=== PATIENT | female | born 1980 | race Caucasian/White ===

== ENCOUNTER 2024-02-06 09:20 | Day surgery (SDC) | payer OTHER, SELFPAY ==
[2024-02-06 09:41] VITALS: BMI 32.3
[2024-02-06 10:00] VITALS: BP 119/73; PULSE 69; RESP 18; TEMP 36.3; O2SAT 97
[2024-02-06 10:37] VITALS: O2SAT 100
--- NOTE | 2024-02-06 10:40 | P.HP_ITS ---
History of Present Illness *Admission Date: 02/06/24 *Reason for visit:: Dysphagia *History of present illness: Mrs. Resendiz is a 43-year-old female who is here for dysphagia, heartburn and reflux. She has some globus sensation. The examination is deemed medically necessary for upper endoscopy. The patient has been seen, interviewed and examined prior to the procedure by both myself and the anesthesia provider. [facility] Disclaimer: The information contained in this section may have been updated after the patient was seen, as this information can be updated by other users. Medical History (Updated 02/06/24 @ 10:41 by Solis Crocker II, MD) History of depression H/O: HTN (hypertension) H/O gastroesophageal reflux (GERD) Appendicitis Surgical History Status post partial amputation of foot History of cholecystectomy History of appendectomy H/O arthroscopic knee surgery Family History Mother Cancer Father Heart attack Other Hypertension Social History (Updated 02/06/24 @ 09:49 by Brigida Gan RN) Smoking Status: Current some day smoker alcohol intake: never substance use type: denies use current occupational status: employed Travel in the last 8 weeks: None caffeine: No Review of Systems Review of Systems Review of systems (narrative): Negative *Cardiovascular Comments: Negative *Gastrointestinal Comments: Negative *Genitourinary Comments: Negative *Musculoskeletal Comments: Negative *Neurologic Comments: Negative Meds Home Medications and Allergies Home Medications ?Medication ?Instructions ?Recorded ?Confirmed ?Type blood sugar diagnostic ([employer] #10 ea 01/03/24 01/03/24 History Verio test strips) cholecalciferol (vitamin D3) 50 50 mcg PO DAILY 01/03/24 02/06/24 History mcg (2,000 unit) capsule dicyclomine 10 mg capsule 10 mg PO BID PRN . 01/03/24 02/06/24 History insulin glargine U-300 conc 300 78 unit SQ DAILY 01/03/24 02/05/24 History unit/mL (3 mL) subcutaneous pen (Toujeo Max U-300 SoloStar) lancets 33 gauge ([employer] Evelio #100 ea 01/03/24 01/03/24 History Plus Lancet) lisinopril 2.5 mg tablet 2.5 mg PO DAILY 01/03/24 02/06/24 History omeprazole 20 mg capsule,delayed 20 mg PO DAILY 01/03/24 02/06/24 History release sertraline 100 mg tablet (Zoloft) 100 mg PO DAILY 01/03/24 02/06/24 History atorvastatin 20 mg tablet 20 mg PO DAILY 02/05/24 02/06/24 History dapagliflozin propanediol 10 mg 10 mg PO DAILY 02/05/24 02/06/24 History tablet (Farxiga) New Prescriptions to Start Prescriptions: Allergies Allergy/AdvReac Type Severity Reaction Status Date / Time metformin Allergy Mild Rash Verified 02/06/24 09:49 sumatriptan [From Imitrex] Allergy Mild Rash Verified 02/06/24 09:49 Exam Data for Last 24 hours Vital signs and Labs for Last 24 Hours: Temp Pulse Resp BP Pulse Ox O2 Del Method O2 Flow Rate 97.3 F L 69 18 119/73 97 Nasal Cannula 5 02/06/24 10:00 02/06/24 10:00 02/06/24 10:00 02/06/24 10:00 02/06/24 10:00 02/06/24 10:37 02/06/24 10:37 I & O for Last 24 hours: Intake & Output 02/03/24 02/04/24 02/05/24 02/06/24 22:59 23:59 23:59 23:59 Weight 194 lb *Routine HEENT Exam Head: Present normocephalic Eye: Present EOMI and PERRL ENT: Present mucous membranes moist *Routine Neck Exam Neck: Present supple *Routine Respiratory Exam Respiratory: Present CTA bilaterally *Routine Cardiovascular Exam Cardiovascular: Present RRR *Routine Abdominal Exam Abdominal: Present soft and normoactive bowel sounds; Absent tenderness *Routine Rectal Exam Rectal:: deferred *Routine Genitalia Exam Genitalia:: deferred *Routine Extremities Exam Extremities: Absent cyanosis, clubbing or edema *Routine Skin Exam Skin: Present warm; Absent rash *Routine Neurological Exam Neurological: Present alert and oriented X3 Assessment and Plan *Assessment and plan (1) Dysphagia: Status: Acute Category: Medical Code(s): R13.10 - Dysphagia, unspecified (2) Heartburn: Status: Acute Category: Medical Code(s): R12 - Heartburn (3) GERD (gastroesophageal reflux disease): Status: Acute Category: Medical Code(s): K21.9 - Gastro-esophageal reflux disease without esophagitis (4) Globus sensation: Status: Acute Category: Medical Code(s): R09.A2 - Foreign body sensation, throat Plan A/P: 1. Dysphagia with heartburn, reflux and globus sensation is the preprocedural diagnosis. The patient will be anesthetized/sedated using MAC sedation. The patient has been seen and examined. Cardiac and lung assessment prior to the examination is stable. Proceed with planned upper endoscopy
--- NOTE | 2024-02-06 10:49 | P.PCN_ITS ---
[facility] Procedure Note Date: 02/06/24 Time: 10:49 Procedure Note:: Upper Endoscopy Procedure Report: Esophagogastroduodenoscopy with cold biopsies and TTS balloon dilation Endoscopost: Solis Crocker II, MD Referring Physician: Colt Caballero MD Date of Procedure: February 06, 2024 Equipment: Olympus GIF 190 standard upper endoscope Sedation: MAC sedation Indications: Mrs. Resendiz is a 43-year-old female who is here for symptoms of dysphagia and globus sensation. She does have heartburn and reflux that is not controlled with omeprazole. She does get moderate belching. She reports some gassiness but no bloating. She reports some painful swallowing but reports no epigastric pain or dyspepsia. She has no early satiety. She has occasional nausea. This is her first upper endoscopy. She does state the dysphagia occurs more with solids and liquids. Procedure: Prior to the procedure, a history and physical exam was performed, and patient's medications and allergies were reviewed. The risks, benefits and alternatives of the sedation and procedure were discussed with the patient. All questions were answered and informed consent was obtained. The patient was brought to the procedure room. Patient identification and proposed procedure were verified by the physician and the nurse. The patient was placed in a left lateral decubitus position and the scope was passed under direct vision. Throughout the procedure, the patient's blood pressure, pulse, and oxygen saturations were monitored continuously. The upper GI endoscopy was accomplished without difficulty. The patient tolerated the procedure well. Findings: The scope was passed directly into the upper esophagus and advanced to the third portion of the duodenum. The post bulbar duodenum and duodenal bulb were normal with normal mucosa and conniventes. The scope was withdrawn through a normal duodenal bulb and pylorus into the stomach. There was bile reflux with linear reactive gastropathy of the antrum. The body and fundus were normal except for a couple of fundic gland polyps. Biopsies were taken from the antrum. One of the polyps was removed via cold biopsy. Upon retroflexion there was a very small sliding 1 to 2 cm hiatal hernia. The scope was then withdrawn into the esophagus. There was no evidence of reflux esophagitis or Mays's. There was no Schatzki's ring, corrugation, webs or strictures. There was no inlet patch proximally. There was evidence of strong tertiary contractions and evidence of moderate esophageal dysmotility. The remainder of the esophageal mucosa was normal. The entire esophagus was dilated to 60 German/20 mm with a TTS hydrostatic balloon. There was some resistance at the cricopharyngeus. Impression: 1. Cricopharyngeal spasm status post dilation to 20 mm 2. Nonerosive GERD with moderate esophageal dysmotility and very small sliding 1 to 2 cm hiatal hernia 3. Bile reflux with linear reactive gastropathy of antrum 4. Diminutive fundic gland gastric polyp Plan: I will follow-up the biopsies. The patient does have evidence of esophageal dysmotility which is causing some of her swallowing difficulty and pain (esophageal spasm). We will discuss treatment options.
[2024-02-06 10:54] VITALS: BP 135/73; PULSE 84; RESP 18; TEMP 36.3; O2SAT 90
[2024-02-06 11:04] VITALS: BP 109/72; PULSE 71; RESP 16; O2SAT 95
[2024-02-06 11:14] VITALS: BP 110/70; PULSE 74; RESP 16; O2SAT 98
[2024-02-06 11:24] VITALS: BP 114/68; PULSE 70; RESP 16; TEMP 36.6; O2SAT 99
[2024-02-07 08:36] LABS: POC Glucose,Bedside 175 (70-110)
== END 2024-02-06 11:24 | disposition home or self-care (01) ==
PROVIDERS: PCP Family Medicine; Visit Provider Internal Medicine Gastroenterology
PROC: 0DJ08ZZ Inspection of Upper Intestinal Tract, Via Natural or Artificial Opening Endoscopic (ICD-10-PCS; CPT 43235; principal; 2024-02-06 11:30)
DX: R13.10 Dysphagia, unspecified (principal); R12 Heartburn; K21.9 Gastro-esophageal reflux disease without esophagitis; R09.A2 Foreign body sensation, throat; J39.2 Other diseases of pharynx; K22.4 Dyskinesia of esophagus; K44.9 Diaphragmatic hernia without obstruction or gangrene; K31.9 Disease of stomach and duodenum, unspecified; K31.7 Polyp of stomach and duodenum; Z72.0 Tobacco use
CPT/HCPCS: 43239; 43249; 82962; C1726

== ENCOUNTER 2024-10-01 09:28 | Outpatient (CLI) | payer OTHER, SELFPAY ==
[2024-10-01 21:30] LABS: Hematocrit 45.5 % (37.0-47.0); Hemoglobin 14.4 g/dL (12.2-16.2); Immature Granulocytes % 0.3 %; Mean Corpuscular HGB Conc 31.6 g/dL (31.8-35.4); Mean Corpuscular Hemoglobin 27.0 pg (27.0-31.2); Mean Corpuscular Volume 85.2 fl (81-99); Nucleated Red Blood Cells % 0 %; Platelet Count 262 K/mm3 (142-424); Red Blood Count 5.34 M/mm3 (4.20-5.40); Red Cell Distribution Width-SD 46.2 fL; White Blood Count 7.8 K/mm3 (4.8-10.8)
[2024-10-01 21:56] LABS: Alanine Aminotransferase 34 U/L (12-78); Albumin Level 4.6 g/dl (3.5-5.0); Albumin/Globulin Ratio 1.6 (1.1-1.8); Alkaline Phosphatase 120 U/L (38-126); Anion Gap 17.3 mEq/L (5-15); Aspartate Amino Transferase 29 U/L (14-36); Bilirubin,Total 0.5 mg/dl (0.2-1.3); Blood Urea Nitrogen 12 mg/dl (7-17); Calcium 9.7 mg/dl (8.4-10.2); Carbon Dioxide 24 mmol/L (22.0-30.0); Chloride 98 mmol/L (98-107); Cholesterol 250 mg/dl (140-200); Creatinine,Serum 0.70 mg/dl (0.52-1.04); Estimated Glomerular Filt Rate 92 ml/min (>60); GFR (African American) 111 ML/MIN (>60); Globulin 2.8 g/dL (1.3-3.2); Glucose 273 mg/dl (74-100); HDL Cholesterol 30 mg/dl (40-60); Potassium 4.3 mmoL/L (3.5-5.1); Sodium 135 mmol/L (136-145); Total Protein,Serum 7.4 g/dl (6.3-8.2); Triglycerides 289 mg/dl (30-150)
[2024-10-01 22:27] LABS: Thyroid Stimulating Hormone 0.53 uIU/mL (0.465-4.68)
[2024-10-01 23:17] LABS: Hepatitis C Ab Qual. W/ RFX NEGATIVE (Negative)
[2024-10-03 05:09] LABS: Hepatitis B Surface Antigen Negative (Negative)
--- OUTSIDE RECORDS SUMMARY | 2024-10-06 09:32 | XMS_ITS | Encounter Summary ---
Author Organization Healthcare Address [address] [id number] Care Team Providers Care Pricing Actuary Name Role Phone Anderson Mckinnon MD Primary Care Provider [phone] Encounter Details Date Type Department Care Team (Latest Contact Info) Description 10/05/2024 Travel Social History Tobacco Use Types Packs/Day Years Used Date Smoking Tobacco: Never Assessed Comments Unknown Sex and Gender Information Value Date Recorded Sex Assigned at Not on file Legal Sex Female 1:54 PM EDT Gender Identity Not on file Sexual Orientation Not on file documented as of this encounter Plan of Treatment Upcoming Encounters Date Type Department Care Team (Late st Contact Info) Description 10/06/2024 10:40 AM EDT Consult [facility] General Surgery [address] [place] [address] Dunia Mc, [employer] [address] [place] [address] documented as of this encounter Visit Diagnoses Not on filedocumented in this encounter Additional Health Concerns Assessment Noted Time A Body Mass Index follow-up plan has been documented for the patient 09/28/2022 4:49 PM EDT documented as of this encounter Care Teams Pricing Actuary Relationship Specialty Start Date End Date Anderson Mckinnon MD [facility] [place] [address] PCP - General 10/05/24 documented as of this encounter
--- OUTSIDE RECORDS SUMMARY | 2024-10-06 09:32 | XMS_ITS | Data Portability ---
Author Organization [facility] Address [address] [place] [address] Assessment Encounter Date Assessment Date Assessment LastModified by Organization Details LastModified Time 07/28/2024 07/28/2024 Call office with questions or concerns. RTO for new or worsening symptoms. [email or web address] Not available 07/28/2024 18:19:23 Plan of Treatment Reminders Order Date Submit Date Provider Last Modified By Organization Details Last Modified Time Details Appointments None recorded . Lab urinalys is, dipstick 2024 025 [email or web address] [facility], [address] [place], [address], 5 16:03:44 TSH + free T4, serum 2024 025 GREGORY [facility], [address], Miguel F, [place], [address], 5 05:43:21 HbA1c (hemoglo bin A1c), blood 2024 025 GREGORY [facility], [address], Miguel F, [place], [address], 5 05:43:24 lipid panel, serum 2024 025 GREGORY [facility], [address], Miguel F, [place], [address], 5 05:43:23 CMP, serum or plasma 2024 025 SHANNON [facility], [address], Miguel F, [place], [address], 5 05:43:22 CBC w/ auto diff 2024 025 SHANNON [facility], [address], Miguel F, [place], [address], 5 05:43:22 Referral None recorded . Procedures None recorded . Surgeries None recorded . Imaging MRI, lumbar spine, w/o contrast - Authoriz ation # [id number] 7 good for 07/30/24 til 09/28/242024 025 [facility] (Centralized Scheduling), [address] [facility] [place], [address], 5 13:46:29 XR, shoulder , 2 or more view 2024 025 [facility], [address] [place] [address] [address], [place], [address], 5 08:54:46 XR, lumbosac ral spine, 2 or 3 view 2024 025 [facility] (Central Scheduling), [address] [facility] [address], [place], [address], 5 13:03:32 Medication Orders acetamin ophen 300 mg-codei ne 30 mg tablet 2024 025 [facility], [address] [facility], [place], [address], 5 10:15:28 ketorola c 60 mg/2 mL intramus cular solution 2024 025 [email or web address] [facility], [address] [facility] [address], [place], [address], 5 10:09:22 ketorola c 60 mg/2 mL intramus cular solution 2024 025 [email or web address] Not available 5 10:09:22 cycloben zaprine 10 mg tablet 2024 025 [facility], [address] [place] [address], [address], 5 10:43:47 acetamin ophen 300 mg-codei ne 30 mg tablet 2024 025 [email or web address] [facility] - [address], [address], 5 10:08:29 ketorola c 60 mg/2 mL intramus cular solution 2024 025 [email or web address] Not available 5 10:09:22 acetamin ophen 300 mg-codei ne 30 mg tablet 2024 025 [email or web address] [place] [address] [place] [address], [address], 5 10:08:29 tizanidi ne 4 mg tablet 2024 025 [facility], [address] [place] [address], [address], 5 10:15:21 cholecal ciferol (vitamin D3) 50 mcg (2,000 unit) capsule 2024 025 [facility] - [address], [address], 5 14:43:51 sertrali ne 100 mg tablet 2024 025 [facility] - [address], [address], 5 14:43:52 Toujeo Max U-300 SoloStar 300 unit/mL (3 mL) subcutan eous insulin pen 2024 025 [facility], [address] [place] [address], [place], [address], 5 14:43:51 Solu-Med rol (PF) 125 mg/2 mL solution for injectio n 2024 025 [email or web address] Not available 10:23:41 predniso ne 20 mg tablet 2024 025 [facility], [address] [place] [address], [place], [address], 5 17:20:28 Patient TargetsNo targets recorded. Patient Instructions Encounter Date Encounter Id Patient Instructions Last Modified By Organization Details Last Modified Time 07/28/2024 [id number] Stress Incontinence: Care Instructions [email or web address] Not available 07/28/2024 16:03:44 Reason for Referral None Reported. Results Created Date Observation Date Name Description Value Unit Range Abnormal Flag Note LastModifiedBy Organization Detail LastModifiedTime 06/14/1906/14/2024 TSH+F REE T4 TSH 1.220 uIU/m L 0.450- 4.500 normal Not Available [facility] ([facility] [place] [facility] [address] [place], [address], 06/14/2024 05:43:21 06/14/19 25 06/14/2024 TSH+F REE T4 T4,free(dire ct) 1.06 NG/dL 0.82-1 .77 normal Not Available [facility] ([facility] [place] [facility] [address] [place], [address], 06/14/2024 05:43:21 06/14/19 25 06/14/2024 CBC WITH DIFFE RENTI AL/PL ATELE T WBC 7.9 x10e3 /uL 3.4-10 .8 normal Not Available [facility] ([facility]) [address] [place], [address], 06/14/2024 05:43:22 06/14/19 25 06/14/2024 CBC WITH DIFFE RENTI AL/PL ATELE T RBC 4.95 x10e6 /uL 3.77-5 .28 normal Not Available [facility] ([facility] [place] [facility] [address] [place], [address], 06/14/2024 05:43:22 06/14/19 25 06/14/2024 CBC WITH DIFFE RENTI AL/PL ATELE T hemoglobin 13.5 g/dL 11.1-1 5.9 normal Not Available [facility] ([facility] [address] [place], [address], 06/14/2024 05:43:22 06/14/19 25 06/14/2024 CBC WITH DIFFE RENTI AL/PL ATELE T hematocrit 41.9 % 34.0-4 6.6 normal Not Available [facility] ([facility]) [address] [place], [address], 06/14/2024 05:43:22 06/14/19 25 06/14/2024 CBC WITH DIFFE RENTI AL/PL ATELE T MCV 85 fL 79-97 normal Not Available [facility] ([facility] [place] [facility]) [address] [place], [address], 06/14/2024 05:43:22 06/14/19 25 06/14/2024 CBC WITH DIFFE RENTI AL/PL ATELE T MCH 27.3 pg 26.6-3 3.0 normal Not Available [facility] ([facility] [place] [facility]) [address] [place], [address], 06/14/2024 05:43:22 06/14/19 25 06/14/2024 CBC WITH DIFFE RENTI AL/PL ATELE T MCHC 32.2 g/dL 31.5-3 5.7 normal Not Available [facility] ([facility] [place] [facility] [address] [place], [address], 06/14/2024 05:43:22 06/14/19 25 06/14/2024 CBC WITH DIFFE RENTI AL/PL ATELE T RDW 15.7 % 11.7-1 5.4 above high normal Not Available [facility] ([facility] [place] [facility] [address] [place], [address], 06/14/2024 05:43:22 06/14/19 25 06/14/2024 CBC WITH DIFFE RENTI AL/PL ATELE T platelets 204 x10e3 /uL 150-45 0 normal Not Available [facility] ([facility] [place] [facility] [address] [place], [address], 06/14/2024 05:43:22 06/14/19 25 06/14/2024 CBC WITH DIFFE RENTI AL/PL ATELE T neutrophils 69 % not estab. normal Not Available [facility] ([facility] [place] [facility] [address] [place], [address], 06/14/2024 05:43:22 06/14/19 25 06/14/2024 CBC WITH DIFFE RENTI AL/PL ATELE T lymphs 25 % not estab. normal Not Available [facility] ([facility] [place] [place] [facility] [address] [place], [address], 06/14/2024 05:43:22 06/14/19 25 06/14/2024 CBC WITH DIFFE RENTI AL/PL ATELE T monocytes 5 % not estab. normal Not Available [facility] ([facility] [address] [place], [address], 06/14/2024 05:43:22 06/14/19 25 06/14/2024 CBC WITH DIFFE RENTI AL/PL ATELE T eos 1 % not estab. normal Not Available [facility] ([facility] [place] [facility] [address] [place], [address], 06/14/2024 05:43:22 06/14/19 25 06/14/2024 CBC WITH DIFFE RENTI AL/PL ATELE T basos 0 % not estab. normal Not Available [facility] ([facility] [place] [facility]) [address] [facility], [place], [address], 06/14/2024 05:43:22 06/14/19 25 06/14/2024 CBC WITH DIFFE RENTI AL/PL ATELE T immature cells MUSEUM CURATOR Not Available [facility] ([facility] [place] [facility] [address] [place], [address], 06/14/2024 05:43:22 06/14/19 25 06/14/2024 CBC WITH DIFFE RENTI AL/PL ATELE T neutrophils (absolute) 5.4 x10e3 /uL 1.4-7. 0 normal Not Available [facility] ([facility] [place] [place] [facility] [address] [place], [address], 06/14/2024 05:43:22 06/14/19 25 06/14/2024 CBC WITH DIFFE RENTI AL/PL ATELE T lymphs (absolute) 2.0 x10e3 /uL 0.7-3. 1 normal Not Available [facility] ([facility] [place] [facility] [address] [place], [address], 06/14/2024 05:43:22 06/14/19 25 06/14/2024 CBC WITH DIFFE RENTI AL/PL ATELE T monocytes(ab solute) 0.4 x10e3 /uL 0.1-0. 9 normal Not Available [facility] ([facility] [place] [facility] [address] [place], [address], 06/14/2024 05:43:22 06/14/19 25 06/14/2024 CBC WITH DIFFE RENTI AL/PL ATELE T eos (absolute) 0.1 x10e3 /uL 0.0-0. 4 normal Not Available [facility] ([facility] [place] [facility]) [address] [facility], [place], [address], 06/14/2024 05:43:22 06/14/19 25 06/14/2024 CBC WITH DIFFE RENTI AL/PL ATELE T baso (absolute) 0.0 x10e3 /uL 0.0-0. 2 normal Not Available [facility] ([facility] [place] [facility] [address] [facility], [place], [address], 06/14/2024 05:43:22 06/14/19 25 06/14/2024 CBC WITH DIFFE RENTI AL/PL ATELE T immature granulocytes 0 % not estab. Not Available [facility] ([facility] [place] [facility] [address] [place], [address], 06/14/2024 05:43:22 06/14/19 25 06/14/2024 CBC WITH DIFFE RENTI AL/PL ATELE T immature grans (abs) 0.0 x10e3 /uL 0.0-0. 1 Not Available [facility] ([facility] [place] [facility] [address] [place], [address], 06/14/2024 05:43:22 06/14/19 25 06/14/2024 CBC WITH DIFFE RENTI AL/PL ATELE T NRBC MUSEUM CURATOR Not Available [facility] ([facility] [place] [facility] [address] [place], [address], 06/14/2024 05:43:22 06/14/19 25 06/14/2024 CBC WITH DIFFE RENTI AL/PL ATELE T hematology comments: MUSEUM CURATOR Not Available [facility] ([facility] [place] [facility] [address] [place], [address], 06/14/2024 05:43:22 06/14/19 25 06/14/2024 COMP. METAB OLIC PANEL (14) glucose 180 mg/dL 70-99 above high normal Not Available [facility] ([facility] [place] [facility] [address] [place], [address], 06/14/2024 05:43:22 06/14/19 25 06/14/2024 COMP. METAB OLIC PANEL (14) BUN 17 mg/dL 6-24 normal Not Available [facility] ([facility] [place] [facility] [address] [place], [address], 06/14/2024 05:43:22 06/14/19 25 06/14/2024 COMP. METAB OLIC PANEL (14) creatinine 0.73 mg/dL 0.57-1 .00 normal Not Available [facility] ([facility] [place] [facility] [address] [place], [address], 06/14/2024 05:43:22 06/14/19 25 06/14/2024 COMP. METAB OLIC PANEL (14) eGFR 106 mL/mi n/1.7 3 >59 normal Not Available [facility] ([facility] [place] [place] [facility] [address] [facility] [place], [address], 06/14/2024 05:43:22 06/14/19 25 06/14/2024 COMP. METAB OLIC PANEL (14) BUN/creatini ne ratio 23 9-23 normal Not Available [facility] ([facility] [place] [place] [facility] [address] [facility] [place], [address], 06/14/2024 05:43:22 06/14/19 25 06/14/2024 COMP. METAB OLIC PANEL (14) sodium 139 mmol/ L 134-14 4 normal Not Available [facility] ([facility] [place] [facility] [address] [facility] [place], [address], 06/14/2024 05:43:22 06/14/19 25 06/14/2024 COMP. METAB OLIC PANEL (14) potassium 3.9 mmol/ L 3.5-5. 2 normal Not Available [facility] ([facility] [place] [facility] [address] [facility] [place], [address], 06/14/2024 05:43:22 06/14/19 25 06/14/2024 COMP. METAB OLIC PANEL (14) chloride 100 mmol/ L 96-106 normal Not Available [facility] ([facility] [place] [place] [facility] [address] [place], [address], 06/14/2024 05:43:22 06/14/19 25 06/14/2024 COMP. METAB OLIC PANEL (14) carbon dioxide, total 19 mmol/ L 20-29 below low normal Not Available [facility] ([facility] [place] [place] [facility] [address], [place], [address], 06/14/2024 05:43:22 06/14/19 25 06/14/2024 COMP. METAB OLIC PANEL (14) calcium 9.3 mg/dL 8.7-10 .2 normal Not Available [facility] ([facility] [place] [place] [facility] [address] [place], [address], 06/14/2024 05:43:22 06/14/19 25 06/14/2024 COMP. METAB OLIC PANEL (14) protein, total 7.3 g/dL 6.0-8. 5 normal Not Available [facility] ([facility] [place] [place] [facility] [address] [place], [address], 06/14/2024 05:43:22 06/14/19 25 06/14/2024 COMP. METAB OLIC PANEL (14) albumin 4.2 g/dL 3.9-4. 9 normal Not Available [facility] ([facility] [place] [facility] [address] [place], [address], 06/14/2024 05:43:22 06/14/19 25 06/14/2024 COMP. METAB OLIC PANEL (14) globulin, total 3.1 g/dL 1.5-4. 5 Not Available [facility] ([facility] [place] [facility] [address], [place], [address], 06/14/2024 05:43:22 06/14/19 25 06/14/2024 COMP. METAB OLIC PANEL (14) bilirubin, total 0.2 mg/dL 0.0-1. 2 normal Not Available [facility] ([facility] [place] [facility] [address] [place], [address], 06/14/2024 05:43:22 06/14/19 25 06/14/2024 COMP. METAB OLIC PANEL (14) alkaline phosphatase 119 IU/L 44-121 normal Not Available [facility] ([facility] [place] [place] [facility] [address] [place], [address], 06/14/2024 05:43:22 06/14/19 25 06/14/2024 COMP. METAB OLIC PANEL (14) AST (SGOT) 22 IU/L 0-40 normal Not Available [facility] ([facility] [place] [facility] [address] [place], [address], 06/14/2024 05:43:22 06/14/19 25 06/14/2024 COMP. METAB OLIC PANEL (14) ALT (SGPT) 30 IU/L 0-32 normal Not Available [facility] ([facility] [place] [facility] [address] [place], [address], 06/14/2024 05:43:22 06/14/19 25 06/14/2024 LIPID PANEL cholesterol, total 239 mg/dL 100-19 9 above high normal Not Available [facility] ([facility] [place] [facility] [address] [place], [address], 06/14/2024 05:43:23 06/14/19 25 06/14/2024 LIPID PANEL triglyceride s 199 mg/dL 0-149 above high normal Not Available [facility] ([facility] [place] [facility] [address] [place], [address], 06/14/2024 05:43:23 06/14/19 25 06/14/2024 LIPID PANEL HDL cholesterol 38 mg/dL >39 below low normal Not Available [facility] ([facility] [place] [facility] [address] [place], [address], 06/14/2024 05:43:23 06/14/19 25 06/14/2024 LIPID PANEL VLDL cholesterol cristin 37 mg/dL 5-40 Not Available [facility] ([facility] [place] [place] [facility] [address] [facility], [place], [address], 06/14/2024 05:43:23 06/14/19 25 06/14/2024 LIPID PANEL LDL chol calc ([facility]) 164 mg/dL 0-99 above high normal Not Available [facility] ([facility] [place] [place] [facility] [address] [facility], [place], [address], 06/14/2024 05:43:23 06/14/19 25 06/14/2024 LIPID PANEL LDL calc comment: MUSEUM CURATOR Not Available [facility] ([facility] [place] [place] [facility] [address] [facility], [place], [address], 06/14/2024 05:43:23 06/14/19 25 06/14/2024 HEMOG LOBIN A1C hemoglobin A1C 11.0 % 4.8-5. 6 above high normal Predi abete s: 5.7 - 6.4 Diabe stiven: >6.4 Glyce abigail contr ol for adult s with diabe stiven: <7.0 Not Available [facility] ([facility] [place] [facility] [address] [facility], [place], [address], 06/14/2024 05:43:24 07/29/19 25 07/28/2024 urina lysis , dipst ick Leukocytes Negati ve Not Available [facility] [address] [place], [address], 07/28/2024 14:11:57 07/29/19 25 07/28/2024 urina lysis , dipst ick Nitrite negati ve Not Available [facility] [address] [place], [address], 07/28/2024 14:11:57 07/29/19 25 07/28/2024 urina lysis , dipst ick Urobilinogen .2 Not Available [address] [place], [address], 07/28/2024 14:11:57 07/29/19 25 07/28/2024 urina lysis , dipst ick Protein Negati ve Not Available [address] [place], [address], 07/28/2024 14:11:57 07/29/19 25 07/28/2024 urina lysis , dipst ick pH 5.5 Not Available [address] [place], [address], 07/28/2024 14:11:57 07/29/19 25 07/28/2024 urina lysis , dipst ick Blood Negati ve Not Available [address] [place], [address], 07/28/2024 14:11:57 07/29/19 25 07/28/2024 urina lysis , dipst ick Specific Electra 1.015 Not Available [address] [place], [address], 07/28/2024 14:11:57 07/29/19 25 07/28/2024 urina lysis , dipst ick Ketone Negati ve Not Available [address] [place], [address], 07/28/2024 14:11:57 07/29/19 25 07/28/2024 urina lysis , dipst ick Bilirubin Negati ve Not Available [address] [place], [address], 07/28/2024 14:11:57 07/29/19 25 07/28/2024 urina lysis , dipst ick Glucose 500 Not Available [facility] [address] [place] [address] [place], [address], 07/28/2024 14:11:57 07/29/19 25 07/28/2024 urina lysis , dipst ick Appearance Clear Not Available [address] [place], [address], 07/28/2024 14:11:57 07/29/19 25 07/28/2024 urina lysis , dipst ick Color Yellow Not Available [address] [place], [address], 07/28/2024 14:11:57 05/26/19 25 05/26/2024 XR, lumbo sacra l spine , 2 or 3 view No observ ation record ed. [email or web address] [facility] (Central Scheduling) [facility] [address], [place], [address], 05/27/2024 07:55:50 07/31/19 25 07/30/2024 XR, shoul edmundo, 2 or more view No observ ation record ed. [email or web address] [address] [place], [address], 07/30/2024 15:34:08 08/06/19 25 08/05/2024 MRI, lumba r spine , w/o contr ast No observ ation record ed. [email or web address] [place] [address], [place], [address], 08/08/2024 15:34:40 Result Notes None recorded. Problems Name Problem SNOMED Code Status Onset Date Resolution Date Notes Provider Name and Address Organization Details Recorded Time Vitamin D deficien cy 68623987 Active 2018 Gerri calle, [place] - [facility] 2 13:07:00 Mixed hyperlip idemia 589207615 Active 2019 Not Available [facility] 1 01:01:19 Migraine 77920468 Active 2019 Not Available [facility] 1 01:01:20 Amenorrh ea 05619531 Completed 201911/24/2020 Sharri Davis, [employer] [address], [place], [address] , [place] - [facility] 3 17:58:15 Family history of cancer of colon 880098136 Active 2019 Not Available [facility] 1 01:01:19 Major depressi ve disorder 798850461 Active 2020 Gerri calle, [place] - [facility] 2 13:06:53 Body mass index 30+ - obesity 868252163 Active 2020 Sharri Davis, [employer] [address], [place], [address] , [place] - [facility] 1 12:48:15 [facility] hyperten lawrence 53526752 Active 2021 Gerri calle, [place] - [facility] 2 13:06:49 Irritabl e bowel syndrome with diarrhea 070073650 Active 2021 Dr. Danii Morocho null, [place] - [facility] 2 13:07:20 Weakness of right hand 75992941356 716590 Completed 202207/08/2024 Lashell Limon RN [address], [place], [address] , [place] [facility] 5 14:07:37 Costal chondrit is 59210108 Completed 202207/08/2024 Lashell Limon RN [address], [place], [address] , [place] [facility] 5 14:07:33 Cough 55457739 Completed 202207/08/2024 Lashell Limon, ELSA [address], [place], [address] , [place] [facility] 5 14:07:23 Uncontro lled type 2 diabetes mellitus 360735237 Active 2016 Gerri [place]le, [place] - [facility] 2 13:06:57 Secondar y oligomen orrhea 08689698 Completed 201611/28/2021 Sharri aDvis, [employer] [address], [place], [address] , [place] [facility] 2 13:30:07 Carpal tunnel syndrome 98413053 Active 2022 Gerri Morocho null, [place] - [facility] 3 11:39:27 Amenorrh ea 06568023 Active 2022 Sharri Davis APRN [address], [place], [address] , [place] [facility] 3 17:58:15 Acute sinusiti s 66081487 Completed 202307/08/2024 Lashell Limon RN [address], [place], [address] , [place] [facility] 5 14:07:10 Chronic low back pain 653378571 Active 2024 Cristiana Renteria, MADHAV [address], [place], [address] , [place] [facility] 5 14:07:12 Chronic pain of left upper limb 92933246042 595552 Active 2024 Cristiana Renteria, MADHAV [address], [place], [address] , [place] [facility] 5 14:11:10 Genuine stress incontin ence 07941702 Active 2024 Cristiana Renteria APRN [address], [place], [address] , [place] [facility] 5 18:20:39 Stenosis of lumbar vertebra l foramen 464197072 Active 2024 Cristiana Renteria APRN [address], [place], [address] , [place] - [facility] 14:07:32 Problem Notes None recorded. Procedures Surgical History Date Name Laterality Status Provider Name and Address Organization Details Recorded Time 10/02/19 24 Suture/Staple removal completed Colt Caballero MD [address], [place], [address], [place] - [facility] 10/02/2023 15:11:45 10/02/19 24 Medication Reconcilliation completed Gerri Rondon [place] - [facility] 10/02/2023 08:44:44 05/03/19 24 Carpal tunnel surgery completed Cony Sandoval [place] - [facility] 06/20/2023 16:31:15 04/04/19 24 Medication Reconcilliation completed Cony Sandoval [place] - [facility] 04/04/2023 09:41:16 04/04/19 24 A1C level 8.0 to 9.0 completed Alison Reeves APRN [address], [place], [address], [place] - [facility] 04/04/2023 09:59:08 03/16/20 23 Date of Last Pap Smear completed Sharri Davis APRN [address], [place], [address], [place] - [facility] 03/21/2023 08:36:41 02/16/20 23 Date of Last Mammogram completed Sharri Davis APRN [address], [place], [address], [place] - [facility] 04/12/2023 17:23:25 10/11/19 23 A1C level 9.1 and above completed Alison Reeves APRN [address], [place], [address], [place] - [facility] 10/10/2022 09:59:11 07/08/19 23 A1C level 9.1 and above completed Alison Reeves APRN [address], [place], [address], [place] - [facility] 07/09/2022 00:54:03 10/16/19 21 Knee arthroscopy/surgery completed Gerri Morocho [place] - [facility] 11/28/2021 13:09:03 11/24/19 20 Diastolic B/P less than 80 mm Hg completed Gerri Morocho [place] - [facility] 11/24/2019 13:03:30 04/29/19 20 Medication Reconcilliation completed Tere Decker [place] - [facility] 04/29/2019 12:53:46 12/17/19 19 Date of Last Colonoscopy completed Sharri Davis, [employer] [address], [place], [address], [place] [facility] 04/12/2023 17:24:13 06/27/19 18 Colposcopy completed Fabyliam Worthy, [employer] [address], [place], [address], [place] [facility] 06/26/2017 15:22:42 06/27/19 18 Colposcopy completed Fabyliam Worthy, [employer] [address], [place], [address], [place] [facility] 06/26/2017 15:24:32 06/27/19 18 Colposcopy completed Fabyliam Worthy, [employer] [address], [place], [address], [place] [facility] 07/01/2017 21:27:59 06/14/19 18 Nexplanon Removal completed Faby Belk, [employer] [address], [place], [address], [place] [facility] 06/15/2017 06:17:19 06/14/19 18 Contraceptive Implant Removal completed Sharon Bradford [place] - [facility] 06/13/2017 15:46:13 03/01/20 17 Knee Surgery completed Gerri Morocho [place] - [facility] 11/28/2021 13:08:34 11/29/19 17 Nexplanon Insertion completed Fabyliam Worthy, [employer] [address], [place], [address], [place] [facility] 11/28/2016 14:16:25 11/29/19 17 Contraceptive Implant Insertion completed Faby Worthy, [employer] [address], [place], [address], [place] [facility] 12/06/2016 16:45:05 Appendectomy completed Sharon SHARMA - [facility] 04/17/2016 13:46:09 Orthopedic Surgery completed Sharon SHARMA - [facility] 04/17/2016 13:46:50 Unlisted px foot/toes completed Sharon Bradford [place] - [facility] 04/17/2016 13:47:32 Ankle arthroscopy/surgery completed Sharon Bradford [place] - [facility] 04/17/2016 13:47:57 Imaging Results None recorded. Procedure Notes None recorded. Medical Equipment None Reported. Allergies Allergen ID Allergen Name Allergen Category Reaction Reaction Severity Criticality Documentation Date Start Date Code Code System Note Provider Name and Address Organization Details Recorded Time 379126 metformin medicatio n diarrhea severe Not available 08/05/2019 6809 RxNorm Edda Holland MD [address], [place], [address], [place] - [facility] 0 10:53:10 11659 sumatript an medicatio n Not available Not available Not available 11/17/2016 [id number] RxNorm Barney cal[place], [place] - [facility] 7 14:14:40 Medications Name Sig Start Date Stop Date Status Note LastModified by Organization Details LastModified Time Prescript ion - Renewal 03/07 completed Not Available Not Available Not Available cyclobenz aprine 10 mg tablet TAKE ONE (1) TABLET THREE (3) TIMES A DAY BY ORAL ROUTE AFTER MEAL(S) FOR 30 DAYS. active Not Available Not Available No t Available medroxypr ogesteron e 10 mg tablet TAKE ONE TABLET BY MOUTH DAILY FOR 10 DAYS 04/04 completed Not Available Not Available Not Available atorvasta tin 40 mg tablet Take 1 tablet every day by oral route in the evening for 90 days. 2023 active Not Available Not Available Not Avai lable metformin 500 mg tablet 1000 mg by oral route. 12/12 completed Not Available Not Available Not Available acetamino phen 325 mg tablet 10/10 completed Not Available Not Available Not Available prednison e 10 mg tablet 06/10 completed Not Available Not Available Not Available insulin glargine (U-100) 100 unit/mL subcutane ous solution 11/24 completed Not Available Not Available Not Available atorvasta tin 10 mg tablet Take 1 tablet every day by oral route in the evening for 90 days. 11/23 completed Not Available Not Available Not Available oxybutyni n chloride ER 10 mg tablet,ex tended release 24 hr TAKE ONE (1) TABLET EVERY DAY BY ORAL ROUTE AFTER A MEAL FOR 30 DAYS. 07/03 completed Not Available Not Available Not Available azithromy rebecca 250 mg tablet TAKE 2 TABLETS (500 MG) BY ORAL ROUTE ONCE DAILY FOR 1 DAY THEN 1 TABLET (250 MG) BY ORAL ROUTE ONCE DAILY FOR 4 DAYS 05/23 completed Not Available Not Available Not Available ibuprofen 800 mg tablet TAKE ONE (1) TABLET EVERY 8 HOURS BY ORAL ROUTE NEEDED FOR 14 DAYS. 05/23 completed Not Available Not Available Not Available tizanidin e 4 mg tablet TAKE ONE (1) TABLET EVERY DAY BY ORAL ROUTE AT BEDTIME FOR 30 DAYS. 07/03 completed Not Available Not Available Not Available benzonata te 200 mg capsule Take 1 capsule 3 times a day by oral route as needed. 02/19 completed Not Available Not Available Not Available levonorge strel-eth inyl estradiol 0.1 mg-20 mcg tablet Take 1 tablet every day by oral route. 11/28 completed Not Available Not Available Not Available cephalexi n 250 mg capsule 01/03 completed Not Available Not Available Not Available hydrocodo ne 5 mg-acetam inophen 325 mg tablet 06/19 completed Not Available Not Available Not Available prednison e 20 mg tablet TAKE 1 TABLET BY MOUTH EVERY DAY AFTER A MEAL FOR 10 DAYS 05/23 completed Not Available Not Available Not Available sertralin e 100 mg tablet Take 2 tablets every day by oral route as directed for 90 days, for depressi on. 2024 active Not Available Not Available Not Avai lable sumatript an 50 mg tablet Take one tablet at onset of headache , may repeat x1 after 2 hours for continue d headache pain 11/17 completed Not Available Not Available Not Available penicilli n V potassium 500 mg tablet 10/17 completed Not Available Not Available Not Available metronida zole 500 mg tablet Take 1 tablet every 12 hours by oral route for 7 days. 01/09 completed Not Available Not Available Not Available acetamino phen 300 mg-codein e 30 mg tablet TAKE ONE (1) TABLET EVERY SIX (6) HOURS BY ORAL ROUTE AFTER MEAL(S) FOR 7 DAYS. 07/03 completed Not Available Not Available Not Available peg-elect rolyte solution 420 gram oral solution 04/29 completed Not Available Not Available Not Available glimepiri de 2 mg tablet 2 mg by oral route. 12/12 completed Not Available Not Available Not Available Promethaz ine VC-Codein e 6.25 mg-5 mg-10 mg/5 mL oral syrup 02/02 completed Not Available Not Available Not Available amitripty line 25 mg tablet 25 mg by oral route. 06/01 completed Not Available Not Available Not Available dicyclomi ne 20 mg tablet Take 1 tablet 4 times a day by oral route as needed for 14 days. 02/19 completed Not Available Not Available Not Available metformin 1,000 mg tablet Take 1 tablet twice a day by oral route for 30 days. 10/07 completed Not Available Not Available Not Available diphenhyd ramine 25 mg tablet 03/02 completed Not Available Not Available Not Available promethaz ine 25 mg tablet Take 1 tablet every 4 hours by oral route as needed. 06/15 completed Not Available Not Available Not Available bupropion HCl 75 mg tablet TAKE 1/2 TABLET BY MOUTH TWICE A DAY active Not Available Not Available No t Available progester one micronize d 200 mg capsule Take 2 capsules every day by oral route for 10 days. 10/30 completed Not Available Not Available Not Available Prevalite 4 gram powder for suspensio n in a packet Take by oral route for 30 days. 07/07 completed Not Available Not Available Not Available omeprazol e 20 mg capsule,d elayed release TAKE ONE (1) CAPSULE BY MOUTH ONCE DAILY active Not Available Not Available No t Available folic acid 1 mg tablet Take 1 tablet every day by oral route for 30 days. 11/24 completed Not Available Not Available Not Available dexametha sone sodium phosphate 4 mg/mL injection solution Inject 2 mL by intramus cular route. 06/10 completed Not Available Not Available Not Available ibuprofen 600 mg tablet take 1 tablet 3 times a day by oral route as needed 02/19 completed Not Available Not Available Not Available methylpre dnisolone 4 mg tablets in a dose pack Take as directed 05/23 completed Not Available Not Available Not Available albuterol sulfate HFA 90 mcg/actua tion aerosol inhaler Inhale 1 puff every 4-6 hours by inhalati on route as needed. 07/07 completed Not Available Not Available Not Available Vitamin D2 1,250 mcg (50,000 unit) capsule Take 1 capsule every week by oral route for 84 days. 03/02 completed Not Available Not Available Not Available ketorolac 60 mg/2 mL intramusc ular solution Inject 1 mL every day by intramus cular route. 07/03 completed Not Available Not Available Not Available iglesia doherty (contrace ptive) 0.35 mg tablet Take 1 tablet every day by oral route. 04/14 completed Not Available Not Available Not Available etodolac 500 mg tablet Take 1 tablet twice a day by oral route. 04/29 completed Not Available Not Available Not Available fluticaso ne propionat e 50 mcg/actua tion nasal spray,erik pension 03/02 completed Not Available Not Available Not Available sertralin e 50 mg tablet TAKE 1 TABLET BY MOUTH DAILY 05/21 completed Not Available Not Available Not Available lisinopri l 2.5 mg tablet TAKE ONE (1) TABLET BY MOUTH ONCE DAILY active Not Available Not Available No t Available dicyclomi ne 10 mg capsule TAKE ONE (1) CAPSULE BY MOUTH THREE TIMES DAILY 05/23 completed Not Available Not Available Not Available naproxen 500 mg tablet 10/30 completed Not Available Not Available Not Available amoxicill in 875 mg-potass ium clavulana te 125 mg tablet 03/02 completed Not Available Not Available Not Available insulin aspar prot-insu kanchan aspart 100 unit/mL (70-30) subcutane ous pen Inject 12 units 3 times a day by subcutan eous route before meal(s) for 90 days. active Not Available Not Available No t Available cyclobenz aprine 5 mg tablet Take 1 tablet 3 times a day by oral route as needed. 06/15 completed Not Available Not Available Not Available bupropion HCl XL 150 mg 24 hr tablet, extended release TAKE ONE TABLET BY MOUTH DAILY 10/17 completed Not Available Not Available Not Available BD Ultra-Fin e Mini Pen Needle 31 gauge x 3/16 06/14 completed Not Available Not Available Not Available insulin detemir (U-100) 100 unit/mL subcutane ous solution 05/26 completed Not Available Not Available Not Available chlorhexi dine gluconate 0.12 % mouthwash Use as directed 11/10 completed Not Available Not Available Not Available BD Insulin Syringe Ultra-Fin e (half unit) 0.3 mL 31 gauge x 5/16 11/10 completed Not Available Not Available Not Available BD Ultra-Fin e Short Pen Needle 31 gauge x 5/16 USE ONE PEN NEEDLE DAILY DIRECTED 06/14 completed Not Available Not Available Not Available Januvia 100 mg tablet Take 1 tablet every day by oral route for 30 days. 11/04 completed Not Available Not Available Not Available Lantus Solostar U-100 Insulin 100 unit/mL (3 mL) subcutane ous pen Inject 70 units every day by subcutan eous route in the evening for 30 days. 02/19 completed Not Available Not Available Not Available Humalog Mix 75-25 KwikPen U-100 insulin 100 unit/mL subcutane ous pen Inject 4 units 3 times a day by subcutan eous route with meals for 25 days. 06/16 completed Not Available Not Available Not Available cholecalc iferol (vitamin D3) 50 mcg (2,000 unit) capsule TAKE ONE (1) CAPSULE BY MOUTH ONCE DAILY active Not Available Not Available No t Available L norgest/E estradiol -E estrad 0.1 mg-20 mcg (84)/10 mcg (7) tabs,3mos 1 po qd 11/28 completed Not Available Not Available Not Available cholecalc iferol (vitamin D3) 25 mcg (1,000 unit) chewable tablet Take 1 tablet every day by oral route. 06/15 completed Not Available Not Available Not Available Solu-Medr ol (PF) 125 mg/2 mL solution for injection Take 125 mg by injectio n route. 05/23 completed Not Available Not Available Not Available pen needle, diabetic 32 gauge x 5/32 06/01 completed Not Available Not Available Not Available Vol-Tab Rx 29 mg iron-1 mg tablet Take 1 tablet every day by oral route. 11/13 completed Not Available Not Available Not Available Nexplanon 68 mg subdermal implant Inject 1 implant by subcutan eous route. 06/13 completed Not Available Not Available Not Available OneTouch Verio test strips TEST BLOOD SUGAR THREE (3) TIMES DAILY (DX. E11.65) 2024 active Not Available Not Available Not Avai lable Invokana 300 mg tablet Take 1 tablet every day by oral route in the morning for 90 days. 03/02 completed Not Available Not Available Not Available Victoza 3-Lauro 0.6 mg/0.1 mL (18 mg/3 mL) subcutane ous pen injector Inject 1.8 mg every day by subcutan eous route. 12/20 completed Not Available Not Available Not Available Farxiga 10 mg tablet TAKE ONE (1) TABLET BY MOUTH EVERY DAY 2024 active Not Available Not Available Not Avai lable Levemir FlexTouch U-100 Insulin 100 unit/mL (3 mL) subcutane ous pen 50 units qd 05/22 completed Not Available Not Available Not Available Toueneida SoloStar U-300 Insulin 300 unit/mL (1.5 mL) subcutane ous pen Inject 20 units every day by subcutan eous route at bedtime. 10/07 completed samples given Not Available Not Available Not Available Vraylar 1.5 mg capsule TAKE ONE (1) CAPSULE EVERY DAY BY ORAL ROUTE FOR 30 DAYS. 07/07 completed Not Available Not Available Not Available Ozempic 0.25 mg or 0.5 mg (2 mg/1.5 mL) subcutane ous pen injector Inject by subcutan eous route for 6 days. 02/19 completed Not Available Not Available Not Available Steglatro 15 mg tablet Take 1 tablet every day by oral route for 30 days. 03/02 completed Not Available Not Available Not Available Steglatro 5 mg tablet Take 1 tablet every day by oral route. 10/07 completed samples given Not Available Not Available Not Available Seglurome t 7.5 mg-1,000 mg tablet Take 1 tablet twice a day by oral route for 30 days. 01/07 completed once a day Not Available Not Available Not Available OneTouch Ultra Blue Test Strip Take 1 strip 4 times a day by miscell. route for 25 days. 06/10 completed Not Available Not Available Not Available insulin glargine (U-300) conc. 300 unit/mL (3 mL) subcutane ous pen INJECT 70 UNITS SUBCUTAN EOUSLY EVERY DAY DIRECTED active Not Available Not Available No t Available Dexcom G6 Sensor device 02/19 completed Not Available Not Available Not Available Dexcom G6 Core Microarchitect 11/10 completed Not Available Not Available Not Available Dexcom G6 Transmitt er device 02/19 completed Not Available Not Available Not Available OneTouch Delica Plus Lancet 33 gauge USE DIRECTED TO TEST BLOOD SUGAR THREE (3) TIMES DAILY active Not Available Not Available No t Available Flublok Quad (PF) 180 mcg (45 mcg x 4)/0.5 mL IM syringe PHARMACI ST ADMINIST ERED IMMUNIZA TION ADMINIST ERED AT TIME OF DISPENSI NG 04/14 completed Not Available Not Available Not Available [facility] ODT 75 mg disintegr ating tablet 04/04 completed Not Available Not Available Not Available OneTouch Verio Reflect Meter active Not Available Not Available Not Available Qulipta 60 mg tablet Take by oral route for 30 days. 12/31 completed Not Available Not Available Not Available Ozempic 0.25 mg or 0.5 mg (2 mg/3 mL) subcutane ous pen injector DIAL AND INJECT UNDER THE SKIN 0.5 MG WEEKLY FOR FOUR (4) WEEKS 01/03 completed Not Available Not Available Not Available Vitals Date Recorded Body height Body mass index (BMI) Body weight Heart rate Oxygen saturation Oxygen saturation in Arterial blood by Pulse oximetry Respiratory rate Systolic And Diastolic Provider Name and Address Organization Details Last Updated DateTime 5 165.1 cm 34.9 kg/m2 61995.6 1 g 76 /min 99 % 99 % 18 /min 110/78 mm[Hg] Parisa scott [place] - [facility] 5 14:35:13 Date Recorded Body height Body mass index (BMI) Body weight Heart rate Oxygen saturation Oxygen saturation in Arterial blood by Pulse oximetry Respiratory rate Systolic And Diastolic Provider Name and Address Organization Details Last Updated DateTime 5 165.1 cm 34.1 kg/m2 34752.4 4 g 85 /min 97 % 97 % 18 /min 100/74 mm[Hg] Parisa scott [place] - [facility] 5 10:21:20 Date Recorded Body height Body mass index (BMI) Body weight Heart rate Oxygen saturation Oxygen saturation in Arterial blood by Pulse oximetry Respiratory rate Systolic And Diastolic Provider Name and Address Organization Details Last Updated DateTime 5 165.1 cm 34.5 kg/m2 21203.4 2 g 65 /min 97 % 97 % 18 /min 110/70 mm[Hg] Parisa FranklinLilliam [facility] - [facility] 5 09:01:22 Date Recorded Body height Body mass index (BMI) Body weight Heart rate Oxygen saturation Oxygen saturation in Arterial blood by Pulse oximetry Respiratory rate Systolic And Diastolic Provider Name and Address Organization Details Last Updated DateTime 5 165.1 cm 33.6 kg/m2 57162.6 6 g 81 /min 98 % 98 % 18 /min 100/76 mm[Hg] Parisa Hill [facility] - [facility] 5 15:08:02 Date Recorded Body height Body mass index (BMI) Body weight Body temperature Heart rate Oxygen saturation Oxygen saturation in Arterial blood by Pulse oximetry Respiratory rate Systolic And Diastolic Provider Name and Address Organization Details Last Updated DateTime 5 165.1 cm 33.9 kg/m2 81704.8 4 g 98.2 [degF] 75 /min 97 % 97 % 18 /min 100/78 mm[Hg] Stephani Garcia [place] - [facility] 5 13:42:11 Social History Question Answer Notes LastModified by Organizat ion Details LastModified Time Tobacco Smoking Status Never Smoker Sharon calle [place] - [facility] 04/17/2016 13:44:07 Do You Have An Advance Directive? No [email or web address] Information not available 04/17/2016 Are You Blind Or Do You Have Difficulty Seeing? No Information not available 03/16/2023 Is Blood Transfusion Acceptable In An Emergency? Yes [email or web address] Information not available 04/17/2016 What Is Your Level Of Caffeine Consumption? None Information not available 04/17/2016 How Much Tobacco Do You Chew? None [email or web address] Information not available 04/17/2016 In The 14 Days Before Symptom Onset, Have You Had Close Contact With A Laboratory-confi rmed COVID-19 While That Case Was Ill? No [email or web address] Information not available 03/16/2023 In The 14 Days Before Symptom Onset, Have You Had Close Contact With A Person Who Is Under Investigation For COVID-19 While That Person Was Ill? No [email or web address] Information not available 03/16/2023 Have You Been To An Area Known To Be High Risk For COVID-19? No [email or web address] Information not available 03/16/2023 Are You Deaf Or Do You Have Serious Difficulty Hearing? No [email or web address] Information not available 04/17/2016 What Type Of Diet Are You Following? REGULAR Information not available 04/17/2016 Which Illicit Or Recreational Drugs Have You Used? NONE [email or web address] Information not available 04/17/2016 Have You Processed Blood Or Body Fluids From An Ebola Virus Disease Patient Without Appropriate PPE? No [email or web address] Information not available 03/16/2023 Do You Reside In Or Have You Traveled To An Area Where Ebola Virus Transmission Is Active? No [email or web address] Information not available 03/16/2023 What Is The Highest Grade Or Level Of School You Have Completed Or The Highest Degree You Have Received? [id number] [email or web address] Information not available 06/13/2017 How Many Days Of Moderate To Strenuous Exercise, Like A Brisk Walk, Did You Do In The Last 7 Days? 1 [email or web address] Information not available 03/16/2023 On Those Days That You Engage In Moderate To Strenuous Exercise, How Many Minutes, On Average, Do You Exercise? 1 [email or web address] Information not available 03/16/2023 Have There Been Any Changes To Your Family Or Social Situation? No [email or web address] Information not available 03/16/2023 How Hard Is It For You To Pay For The Very Basics Like Food, Housing, Medical Care, And Heating? 1 [email or web address] Information not available 03/16/2023 What Is The Fluoride Status Of Your Home? Unknown [email or web address] Information not available 03/16/2023 Have You Recently Or Are You Planning To Travel To An Area With Zika Virus? No [email or web address] Information not available 03/16/2023 How Many Years Have You Used Illicit Or Recreational Drugs? 0 [email or web address] Information not available 06/13/2024 Live Alone Or With Others? With Others [email or web address] Information not available 03/16/2023 Last Menstrual Period? 11/19/2021 [email or web address] Information not available 11/28/2021 Do You Have A Medical Power Of Home Economist Consumer Service? No [email or web address] Information not available 03/16/2023 What Was The Date Of Your Most Recent Tobacco Screening? 07/28/2024 Information not available 07/28/2024 How Many Children Do You Have? 0 [email or web address] Information not available 03/16/2023 Performs Monthly Self-breast Exam? Yes [email or web address] Information not available 03/16/2023 Do You Use Protection During Sex? No [email or web address] Information not available 03/16/2023 Do You Use Protection Against STDs? Always [email or web address] Information not available 03/16/2023 What Is Your Relationship Status? Single In A Relationship Information not available 11/24/2020 Do You Use Your Seat Belt Or Car Seat Routinely? Yes Information not available 03/16/2023 Seat Belts Used Routinely Yes [email or web address] Information not available 03/16/2023 Are You Sexually Active? Yes Information not available 04/17/2016 Do You Have Smoke And Carbon Monoxide Detectors In Your Home? Yes [email or web address] Information not available 11/24/2020 Are You Passively Exposed To Smoke? No [email or web address] Information not available 11/24/2020 How Much Tobacco Do You Smoke? No Information not available 03/16/2023 General Stress Level Low Information not available 03/16/2023 Do You Use Sunscreen Routinely? Yes [email or web address] Information not available 04/17/2016 Has Tobacco Cessation Counseling Been Provided? Yes [email or web address] Information not available 03/16/2023 On What Date Was Tobacco Cessation Counseling Provided? 07/28/2024 Information not available 07/28/2024 How Many Years Have You Smoked Tobacco? 0 [email or web address] Information not available 06/01/2017 Do You Have Difficulty Walking Or Climbing Stairs? No Information not available 03/16/2023 What Contraceptive Method Was Reported At Start Of This Visit? None [email or web address] Information not available 03/16/2023 What Contraceptive Method Was Reported At End Of This Visit? None Information not available 03/16/2023 Do You Have Any Future Plans To Get ? I'm OK Either Way [email or web address] Information not available 03/16/2023 Which Type Of Protection Is Used? None [email or web address] Information not available 03/16/2023 Sex: Female Functional Status Question Answer Note LastModified by Organizat ion Details LastModified Time Do you or have you ever used smokeless tobacco? Never used smokeless tobacco [email or web address] Information not available 11/24/2019 Are you currently employed? No [email or web address] Information not available 11/24/2020 Do you have transportation difficulties? No [email or web address] Information not available 03/16/2023 Urinary incontinence assessment performed? Yes [email or web address] Information not available 03/16/2023 Are you able to care for yourself? Yes [email or web address] Information n ot available 11/24/2020 Do you have difficulty dressing or bathing? No Information not available 03/16/2023 Do you or have you ever used e-cigarettes or vape? Never used electronic cigarettes [email or web address] Information not available 03/16/2023 What is your exercise level? Occasional [email or web address] Information not available 04/17/2016 Do you use any illicit or recreational drugs? No Information not available 11/24/2020 Do you or have you ever used any other forms of tobacco or nicotine? No [email or web address] Information not available 03/16/2023 What is your level of alcohol consumption? None [email or web address] Information not available 04/17/2016 What is your status? Not [email or web address] Information no t available 03/16/2023 Are you able to walk? YESWOREST [email or web address] Information not available 03/16/2023 Do you have difficulty doing errands alone? No [email or web address] Information not available 03/16/2023 Mental Status Question Answer Note LastModified by Organizat ion Details LastModified Time Do you feel stressed (tense, restless, nervous, or anxious, or unable to sleep at night)? [id number] [email or web address] Information not available 03/16/2023 Do you have difficulty concentrating, remembering or making decisions? [email or web address] Information no t available 03/16/2023 Family History Relationship Description Onset Age of this Age Resolved Age Notes LastModified by Organization Details LastModified Time Paternal Aunt Diabetes mellitus [email or web address] Not available 2016 13:43:59 Mother Hypertensive disorder [email or web address] Not available 2018 08:24:19 Mother Malignant tumor of colon 58 [email or web address] Not available 2021 13:08:00 Mother Non-Hodgkin' s lymphoma (clinical) [email or web address] Not available 06/13 08:55:17 Father Hypercholest erolemia [email or web address] Not available 2018 08:24:25 Medical History Condition Response Pancreatitis N Other N Atrial Fibrillation N congenital heart disease N Blood Diseases N Hyperthyroidism N Rheumatoid arthritis N Blood Transfusion N Erectile Dysfunction N amputation N Skin Lesions N Depression Y Pneumonia N Incontinence N Murmur N Edema N Alzheimer's Disease N Migraine Headaches N Tobacco Abuse N Anxiety Disorder Y Hemorrhoids N Obesity Y Vision or Eye Problems N Restless Leg Syndrome N Arthritis N Infertility N Polyps N Carpal Tunnel N Acid Reflux (GERD) N Cancer N Stroke N Varicosities N Tendonitis N Crohn's Disease N Hypercholesterolemia N Skin Cancer N Fibromyalgia N Headaches N Anal Fissure N Irritable Bowel Syndrome Y Kidney Disease N Heart Problems N Hospitalizations N Gallstones N Kidney or Bladder Problems Y Goiter N Acne N Eating Disorder N Mays's Esophagus N Hypertriglyceridemia N Constipation N Embolism N Vitamin B12 Deficiency N Deviated Septum N AIDS/HIV N Myocardial Infarction N Asthma N Mitral Valve Disorders N Vertigo N Hepatitis N Thyroid Cancer N Neuropathy N History of DVT N Herniated Disc N Chicken Pox N Von Willebrands Disease N Thrombophilias N Breast Cancer N Hernia N Plantar Fasciitis N Lung Disease N Hypothyroidism N Defects or Inherited Disease N Breast Problem N Ovarian Cyst N Anesthesia Complications N Testosterone Deficiency N Interstitial Cystitis N Congenital Anomalies N Hypoglycemia N Blood clot N Vitamin D Deficiency N Cellulitis N Endometriosis N Fracture N Bladder or Kidney Problems N Panic Disorder N Schizophrenia N Concussion N Spina Bifida N Osteoarthritis N Parkinson's Disease N Disc Protrusion N STI N Esophagitis N Angina N Thyroid Problems N GI Problems N ADD/ADHD N Anemia N Multiple Sclerosis N Abnormal PAP N Lumbago N Mental Illness N Psychiatric Illness N Diabetes Y Ovarian Cancer N Degenerative Disc Disease N Seizures/Epilepsy N Hyperlipidemia N Syncope N Insomnia N Eczema N Abuse/Domestic Violence N Attention Deficient Disorder N Dementia N Ulcerative colitis N Cerebrovascular Disease N Depression N Gu[place]ain[place] N Sleep Apnea N Aneurysm N Bronchitis N Heart Disease N Hypertension Y Pre-Eclampsia N Suicidal Ideation N Osteoporosis N Gynecological History Statement/Question Response Abnormal Pap N Date of Last Mammogram 02/15/2023 Date of LMP 12/24/2023 On BCP's at Conception? N STIs/STDs N Colposcopy 06/26/2017 HPV Vaccine N Current Control Method None Age at Menarche 11 Last Annual Exam/Provider 03-16-2023 w/D T Last Lipids 10-07-2018 Date of Last Colonoscopy 12/16/2018 Most Recent Bone Density Sexually Active? Y Date of Last Cervical Culture 06/01/2017 Menses Monthly N Last [facility] Ovarian U/S Screening NEVER Date of Last Pap Smear 03/16/2023 Sexual Problems? N LMP Definite Desired Control Method None Hormone Replacement Therapy N Obstetrics History GPAL:G 0 P 0 0 0 0 Type Value Full Term 0 Living 0 Total 0 Immunizations Vaccine Type Date Status Note Provider Nam e and Address Organization Details Recorded Time Influenza, recombinant, quadrivalent, PF 12/21/2018 completed Lashell Limon RN [address], [address], [facility] - [facility] 11/10/2022 10:00:33 Influenza, recombinant, quadrivalent, PF 12/27/2022 completed Gerri Morocho [place], [place] - [facility] 03/16/2023 11:34:24 Past Encounters Encounter ID Performer Location Encounter Start Date Encounter Closed Date Diagnosis/Indication Diagnosis SNOMED-CT Code Diagnosis ICD10 Code Diagnosis Note [id number] MADHAV 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 She declines dietary consult. Counseling 702654758 Z71 .9 Exercise counselkanchan tian. Patient encouraged to exercise 30 minutes 5 days a week. 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 [address] 04/21/2016 08:49:34 04/21/2016 09:04:34 Oligomenorrhea 65863750 N91.5 Hyperlipid emia screening 427703165 Z13.220 Diabetes m ellitus screening 198842326 Z13.1 Thyroid di sorder screening 142308629 Z13.29 Anemia screening 4065700 07 Z13.0 [id number] Sarah Joshi MS, RD, LD [place] [employer] [address] [place] [address] [place] [address] 05/01/2016 13:11:33 05/01/2016 14:18:04 Uncontrolled type 2 diabetes mellitus 749504048 E11.65 [id number] Sarah Joshi MS, RD, LD [place] [employer] [address] [place] [address] [place] [address] 05/29/2016 14:40:20 05/29/2016 15:36:29 Uncontrolled type 2 diabetes mellitus 233132384 E11.65 [id number] Sarah Joshi MS, RD, LD [place] [employer] [address] [place] [address] [place] [address] 06/26/2016 13:32:23 06/26/2016 14:18:26 Uncontrolled type 2 diabetes mellitus 049190141 E11.65 [id number] MADHAV Caballero [employer]GRAPH[employer] E[employer]MENT [employer]SEMBLER [address] [place] [address] [place] [address] 07/26/2016 13:49:43 07/26/2016 15:25:00 Initial prescription of oral contraception 624001820 Z30.011 Amenorrhea 22108563 N91. 2 Uncontroll ed type 2 diabetes mellitus 396081789 E11.65 [id number] Sarah Joshi MS, RD, LD [place] [employer] [address] [place] [address] [place] [address] 08/07/2016 13:51:50 08/07/2016 16:29:19 Uncontrolled type 2 diabetes mellitus 242586736 E11.65 [id number] MADHAV Caballero [employer]GR[employer] E[employer]IPMENT [employer]SEM[employer] [address] [place] [address] [place] [address] 10/30/2016 14:18:30 10/30/2016 16:03:34 Secondary oligomenorrhea 39562139 N91.4 Implantati on of subcutaneous contraceptive 546866470 Z30.017 Uncontroll ed type 2 diabetes mellitus 459865964 E11.65 starting on insulin pump next week Body mass index 30+ - obesity 088292804 Z68.37 [id number] Sarah Joshi MS, RD, LD [place] [employer]MENT [employer] [address] [place] [address] [place] [address] 11/02/2016 14:08:56 11/02/2016 16:31:08 Uncontrolled type 2 diabetes mellitus 381411038 E11.65 [id number] MADHAV [place] [address] [place] [address] 11/10/2016 13:05:55 11/10/2016 14:23:39 Migraine without aura 08596919 G43.009 Pain in left knee 077834 8520 52324 M25.678 [id number] MADHAV [place] [address] [place] [address] 11/17/2016 13:34:36 11/17/2016 15:10:53 Allergic reaction, due to correct medicinal substance properly administered 64761006 T50.905A [id number] MADHAV Caballero [employer]GRAPH[employer] E[employer]IPMENT [employer]SEMBLER [address] [place] [address] [place] [address] 11/28/2016 12:57:55 11/28/2016 14:13:53 Implantation of subcutaneous contraceptive 700165044 Z30.949 [id number] MADHAV Caballero [employer]OTOGRAPH[employer] EQUIPMENT [employer]SEMBLER [address] [place] [address] [place] [address] 12/06/2016 16:08:07 12/06/2016 16:55:15 Subcutaneous contraceptive implant present 761474628 Z97.8 [id number] MADHAV Caballero [employer]OTOGRAPH[employer] EQUIPMENT ASSEMBLER [address] [place] [address] [place] [address] 06/01/2017 10:35:32 06/01/2017 11:41:10 Routine gynecologic examination done 0779632126 9101 Z01.419 Examinatio n of blood pressure 279514671 Z01.30 BP goal < 140/90 Depression screening 171 817170 Z13.89 Diet education 47854800 Z71.3 9833-8391 calorie diet recommende d with emphasis on low saturated fat, low carbohydra te, and adequate protein intake. She declines dietary consult. Counseling 288541549 Z71 .9 Exercise counselkanchan heredia Patient encouraged to exercise 30 minutes 5 days a week. Vaccine de clined by patient 4900664396 02 Z28.21 Screening for malignant neoplasm of cervix 800890358 Z12.4 Body mass index 30+ - obesity 201352758 Z68.35 Uncontroll ed type 2 diabetes mellitus 254967812 E11.65 [id number] MADHAV [place] [address] [place] [address] 02/02/2017 14:37:20 02/02/2017 16:56:58 Pre-surgery evaluation 351432032 Z01.025 [id number] MADHAV Caballero [employer]GRAPH[employer] E[employer]IPMENT [employer]SEMBLER [address] [place] [address] [place] [address] 06/13/2017 14:31:33 06/13/2017 17:20:49 Removal of subcutaneous contraceptive done 1825135734 57662 Z98.536 [id number] MADHAV Caballero [employer]OTOGRAPHIC EQUIPMENT ASSEMBLER [address] [place] [address] [place] [address] 06/19/2017 12:44:38 06/19/2017 13:13:53 Surgical follow-up 419781156 Z09 [id number] MADHAV Caballero [employer]OTOGRAPHIC EQUIPMENT [employer]SEMBLER [address] [place] [address] [place] [address] 06/26/2017 12:51:43 06/26/2017 14:27:18 HPV - Human papillomavirus test positive 079319197 R87.922 [id number] Alison Reeves APRN [address] [place] [address] 11/13/2017 08:31:13 11/13/2017 12:25:02 Body mass index 30+ - obesity 728784488 Z68.36 Uncontroll ed type 2 diabetes mellitus 499498582 E11.65 Right uppe r quadrant pain 353232969 R10.11 Pain of ri ght hip joint 6168454671 81087 M25.880 [id number] Ailson Reeves APRN [address] [place] [address] 12/11/2017 09:45:31 12/11/2017 12:23:28 Polyuria 35126050 R35.8 Right uppe r quadrant pain 425240330 R10.11 Uncontroll ed type 2 diabetes mellitus 811148213 E11.65 [id number] MADHAV [place] [address] [place] [address] 01/01/2018 10:26:25 01/01/2018 13:22:46 Uncontrolled type 2 diabetes mellitus 896891919 E11.65 [id number] MADHAV Caballero [employer]GRAPH[employer] EQUIPMENT [employer]SEMBLER [address] [place] [address] [place] [address] 10/21/2018 10:10:11 10/21/2018 11:40:04 Routine gynecologic examination done 9602825975 9101 Z01.419 Examinatio n of blood pressure 809966784 Z01.30 BP goal < 140/90 Depression screening 171 635934 Z13.31 Diet education 64360200 Z71.3 9351-9299 calorie diet recommende d with emphasis on low saturated fat, low carbohydra te, and adequate protein intake. She declines dietary consult. Counseling 334452698 Z71 .82 Exercise counselkanchan heredia Patient encouraged to exercise 30 minutes 5 days a week. Screening for malignant neoplasm of cervix 389767323 Z12.4 Z11.51 Z11.8 Family his tory of cancer of colon 312925556 Z80.0 Uncontroll ed type 2 diabetes mellitus 288326341 E11.65 Initial pr escription of oral contraception 675122566 Z30.011 Body mass index 30+ - obesity 012505328 Z68.34 Amenorrhea 57678803 N91. 2 [id number] Mary Esteban APRN [address] [place] [address] 10/07/2018 08:03:32 10/07/2018 11:06:30 Uncontrolled type 2 diabetes mellitus 347727392 E11.65 Diabetes mellitus 461492 09 E11.9 [id number] Mary Esteban APRN [address] [place] [address] 10/14/2018 08:47:40 10/14/2018 09:25:13 Uncontrolled type 2 diabetes mellitus 141682240 E11.65 Vitamin D deficiency 347 28781 E55.9 [id number] MADHAV Sahni [employer]OTOGRAPHIC EQUIPMENT ASSEMBLER [address] [place] [address] [place] [address] 11/24/2019 12:33:45 11/24/2019 13:45:35 Routine gynecologic examination done 9120376874 9101 Z01.419 Examinatio n of blood pressure 607036616 Z01.30 BP goal < 140/90 Diet education 85757840 Z71.3 1600 calorie diet recommende d with emphasis on low saturated fat, low carbohydra te, and adequate protein intake. She declines dietary consult. Hypertensi on screening 422150744 Z13.6 Exercises education, guidance, and counseling 203939043 Z71.82 Body mass index 30+ - obesity 595831726 Z68.34 Amenorrhea 30125779 N91. 2 Screening for malignant neoplasm of cervix 946437806 Z12.4 Uncontroll ed type 2 diabetes mellitus 294566563 E11.65 Screening for malignant neoplasm of breast 608591696 Z12.39 Family his tory of cancer of colon 315074123 Z80.0 Constipation 45151421 K5 9.00 [id number] MADHAV [address] [place] [address] 04/14/2019 07:52:21 04/14/2019 08:50:55 Vitamin D deficiency 07493767 E55.9 Uncontroll ed type 2 diabetes mellitus 155660194 E11.65 Diabetes mellitus 550191 09 E11.9 Pain of le ft shoulder joint 3836944201 8129410 M25.512 Fatigue 16169353 R53.83 [id number] Mary Esteban APRN [address] [place] [address] 04/29/2019 12:43:32 04/29/2019 13:37:25 Uncontrolled type 2 diabetes mellitus 026222354 E11.65 Diabetes mellitus 501612 09 E11.9 Pain of le ft shoulder joint 9933600373 9372072 M25.347 [id number] Edda Holland MD [address] [place] [address] 08/05/2019 10:16:18 08/05/2019 11:05:49 Uncontrolled type 2 diabetes mellitus 572858555 E11.65 Vitamin D deficiency 347 48211 E55.9 Spasm 18334412 R25.2 [id number] Edda Holland MD [address] [place] [address] 11/05/2019 08:17:16 11/05/2019 09:18:29 Uncontrolled type 2 diabetes mellitus 805207871 E11.65 Vitamin D deficiency 347 46584 E55.9 Mixed hyperlipidemia 267 545595 E78.2 Migraine 17005389 G43.90 9 Nausea 870129454 R11.0 [id number] Edda Holland MD [address] [place] [address] 03/02/2020 15:36:17 03/02/2020 18:54:24 Uncontrolled type 2 diabetes mellitus 890765662 E11.65 Mixed hyperlipidemia 267 501900 E78.2 Vitamin D deficiency 347 09735 E55.9 Right uppe r quadrant pain 710862792 R10.11 Secondary amenorrhea 156 861367 N91.1 [id number] Edda Holland MD [address] [place] [address] 04/05/2020 17:46:12 04/05/2020 18:56:42 Lumbar sprain 702603258 S33.5XXA Spasm of back muscles 20 6147272 M62.830 Uncontroll ed type 2 diabetes mellitus 922235789 E11.65 [id number] Edda Holland MD [address] [place] [address] 06/15/2020 13:21:50 06/15/2020 14:35:21 Uncontrolled type 2 diabetes mellitus 103591153 E11.65 Mixed hyperlipidemia 267 258105 E78.2 Fatigue 59658268 R53.83 Major depr essive disorder 659261801 F32.9 Pain in left knee 941272 1409 96381 M25.562 Family bereavement 68906 7006 Z63.4 [id number] Edda Holland MD [address] [place] [address] 10/11/2020 10:48:04 10/11/2020 13:27:29 Pre-surgery evaluation 578644022 Z01.818 Pain in left knee 872111 3546 78374 M25.562 Major depr essive disorder 087429043 F32.9 [id number] Jose Prado APRN [facility] [address] [place] [address] 11/16/2020 10:13:20 11/16/2020 10:59:23 Uncontrolled type 2 diabetes mellitus 471164570 E11.65 Vitamin D deficiency 347 78927 E55.9 Mixed hyperlipidemia 267 977483 E78.2 [id number] MADHAV Sahni [employer]OTOGRAPHIC EQUIPMENT ASSEMBLER [address] [place] [address] [place] [address] 11/24/2020 12:35:43 11/24/2020 15:08:02 Routine gynecologic examination done 4446376581 9101 Z01.419 Depression screening 171 157020 Z13.89 PHQ-9 completed today. Diet education 74540954 Z71.3 1600 calorie diet recommende d with emphasis on low saturated fat, low carbohydra te, and adequate protein intake. She declines dietary consult. Counseling 698891145 Z71 .82 Exercise counselkanchan heredia Patient encouraged to exercise 30 minutes 5 days a week. Examinatio n of blood pressure 091605710 Z01.30 BP goal < 140/90 Hypertensi on screening 512426938 Z13.6 Body mass index 30+ - obesity 433847110 Z68.34 [id number] MADHAV Mabrysantoshjose g [facility] [address] [place] [facility] [place] [place] [address] 03/07/2021 09:44:56 03/07/2021 10:54:02 Pain in left sacroiliac joint 0733361319 7177700 M53.3 [id number] Jose Prado APRN [place] [facility] [address] [place] [facility] [place] [place] [address] 06/14/2021 10:31:27 06/14/2021 11:02:15 Uncontrolled type 2 diabetes mellitus 348109933 E11.65 Patient ga dical record not available 548051711 Z76.89 Mixed hyperlipidemia 267 764772 E78.2 Body mass index 30+ - obesity 568053359 Z68.32 [id number] Jose Prado APRN [place] [facility] [address] [place] [facility] [place] [address] 10/07/2021 11:02:50 10/07/2021 12:00:34 Pain of left shoulder joint 3052857074 0061895 M25.051 [id number] Na MADHAV Bonilla [place] [facility] [address] [place] [facility] [place] [address] 10/17/2021 08:41:16 10/17/2021 09:25:59 Uncontrolled type 2 diabetes mellitus 276894242 E11.65 Chronic-un controlled Last HgbA1C 7.9 (06/14/21) Vitamin D deficiency 347 26221 E55.9 Last Vitamin D 45.9 (11/16/20) Essential hypertension 60861799 I10 Chronic-st ableBP is 114/76 today Acid reflux 779758879 K2 1.9 New Onset: daily acid refluxPati ent encouraged to decrease intake of acidic, spicy, greasy foods and to remain upright for 30 minutes following meals.Foll ow up in 6-8 weeks Chronic diarrhea 5488543 09 K52.9 Patient reports that she has been experienci ng diarrhea 5-7 times daily for >12 months.Kailyn de la garza has accompanyi ng abdominal cramping but denies any nausea, vomiting, or decreased appetite.Antonio sanchez does report daily acid reflux. Started 10/17/21 on omeprazole . Follow up in 2 months.Kailyn de la garza requests referral to Dr. Foy.Kailyn de la garza has family history of colon cancer. [id number] MADHAV López [facility] [address] [place] [address] 10/26/2021 09:46:57 10/26/2021 10:21:58 Uncontrolled type 2 diabetes mellitus 513103605 E11.65 [id number] MADHAV Sahni [employer]APH[employer]IPMENT [employer]SEMBLER 927 [facility] [place] [address] 11/28/2021 12:51:43 11/28/2021 13:31:49 Routine gynecologic examination done 7375604577 9101 Z01.419 Depression screening 171 191774 Z13.89 PHQ-9 completed today. Screening for malignant neoplasm of cervix 658890713 Z12.4 Diet education 79924776 Z71.3 Encourage healthy eating/dec reased fats, sugars, fried foods Counseling 650153049 Z71 .82 Encouraged regular exercise 30-40min/d ay 4-5 days/wk Examinatio n of blood pressure 404815339 Z01.30 BP goal < 140/90 Essential hypertension 72706583 I10 Body mass index 30+ - obesity 263447465 Z68.31 Family his tory of cancer of colon 522259269 Z80.0 had normal colonoscop y w/Dr. Foy Uncontroll ed type 2 diabetes mellitus 324268990 E11.65 [id number] MADHAV Mabry [facility] [address] [place] [address] 01/09/2022 15:05:06 01/09/2022 15:24:38 Major depressive disorder 765002721 F32.9 [id number] MADHAV Mabry [place] [address] [facility] [place] [address] 02/03/2022 09:14:59 02/03/2022 10:05:46 Major depressive disorder 361285711 F32.9 [id number] Alison Reeves[address] [address] 07/07/2022 12:55:16 07/07/2022 14:39:04 Uncontrolled type 2 diabetes mellitus 755802900 E11.65 Irritable bowel syndrome with diarrhea 274277720 K58.0 Major depr essive disorder 152584035 F32.9 Mixed hyperlipidemia 267 714038 E78.2 Body mass index 30+ - obesity 474477723 Z68.33 Obesity 526304948 E66.9 Vitamin D deficiency 347 32463 E55.9 Amenorrhea 79072765 N91. 2 [id number] Alison Reeves[address] [address] 10/10/2022 08:50:23 10/10/2022 10:16:48 Uncontrolled type 2 diabetes mellitus 428247186 E11.65 Essential hypertension 57244883 I10 Major depr essive disorder 081224722 F32.9 Body mass index 30+ - obesity 495322557 Z68.32 Obesity 216631027 E66.9 [id number] Alison Reeves[address] [address] 11/10/2022 09:32:36 11/10/2022 10:22:55 Uncontrolled type 2 diabetes mellitus 558879935 E11.65 Body mass index 30+ - obesity 214568340 Z68.32 Obesity 168519758 E66.9 Screening mammography 24 485845 Z12.31 Peripheral neuropathy due to type 2 diabetes mellitus 3061106678 107 E11.42 bilateral feet/hands 9882721 Alison Reeves[address] [place] [address] 12/13/2022 14:09:32 12/13/2022 15:51:38 Migraine 17442347 G43.909 Weakness o f right hand 2334134154 6129334 R29.488 [id number] Pierre Forde PA-C [facility] [address] [place] [address] 01/19/2023 13:48:51 01/19/2023 15:40:23 Costal chondritis 57884921 M94.0 Discussed supportive care with patient. Can take OTC pain medication such as tylenol or ibuprofen (dosed based on weight for pediatric patients) as needed to relieve fever, headache, or body aches. If patient should get worse call clinic or go to emergency room. Discussed expected course and cautioned signs and sxs to seek further treatment. --do not mix NSAIDs, wait 12-24hrs before using further NSAIDS after IM ketorolac Cough 62096446 R05.9 [id number] Alison Reeves APRN [facility] [address] [place] [place] [address] 02/19/2023 10:03:28 02/19/2023 12:17:27 Vitamin D deficiency 17433721 E55.9 Uncontroll ed type 2 diabetes mellitus 070761449 E11.65 Carpal [place] julio syndrome of right wrist 8907204754 22523 G56.01 Pre-surger y evaluation 089131487 Z01.171 [id number] MADHAV Sahni [employer]APH[employer]QUIPMENT ASSEMBLER 7 [facility] [place] [address] 03/16/2023 11:08:50 03/16/2023 12:10:08 Routine gynecologic examination done 7975003570 9101 Z01.419 Depression screening 171 892432 Z13.31 PHQ-9 completed today. Diet education 26021908 Z71.3 Encourage healthy eating/dec reased fats, sugars, fried foods Counseling 290746192 Z71 .82 Exercise counselkanchan g. Patient encouraged to exercise 30 minutes 5 days a week. Examinatio n of blood pressure 962109749 Z01.30 BP goal < 140/90 Screening for malignant neoplasm of cervix 009507691 Z12.4 Body mass index 30+ - obesity 327018971 Z68.34 Obesity 588579393 E66.9 Amenorrhea 82259479 N91. 1 Essential hypertension 42128418 I10 Major depr essive disorder 779881409 F32.9 Uncontroll ed type 2 diabetes mellitus 547376603 E11.65 Family his tory of cancer of colon 748350918 Z80.0 had normal colonoscop y w/Dr. Foy [id number] Alison Reeves[address] 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 right wrist 0435837616 56984 G56.01 Pre-surger y evaluation 791746385 Z01.818 Uncontroll ed type 2 diabetes mellitus 323542132 E11.65 A1C 8.6, continue meds as prescribed , encouraged BID blood glucose testing and adherence with ADA diet guidelines 9658722 Alison Reeves[address] [place] [address] 06/20/2023 15:19:16 06/20/2023 17:34:52 Uncontrolled type 2 diabetes mellitus 691487508 E11.65 continue meds as prescribed , encouraged BID blood glucose testing and adherence with ADA diet guidelines Major depr essive disorder 604498948 F32.9 symptoms stable/con trolled Acid reflux 382775933 K2 1.9 symptoms stable/con trolled Essential hypertension 79871546 I10 controlled Mixed hyperlipidemia 267 722227 E78.2 Vitamin D deficiency 347 93900 E55.9 Irritable bowel syndrome with diarrhea 564289144 K58.0 Migraine 24408649 G43.90 9 Postoperative care 01186 9007 Z48.89 05/24/2023, R carpal tunnel, R cubital tunnel release, [facility] Carpal washington julio syndrome of right wrist 5135438218 49382 G56.01 05/24/2023, R carpal tunnel, R cubital tunnel release, [facility] [id number] Colt Caballero MD [address] [place] [address] 09/04/2023 15:00:23 09/04/2023 16:33:03 Uncontrolled type 2 diabetes mellitus 035960774 E11.65 Carpal washing[place] julio syndrome 19246375 G56.00 Dysphagia 74504508 R13.1 0 [id number] Colt Caballero MD [address] [place] [address] 10/02/2023 08:41:27 10/02/2023 09:52:07 Laceration of finger 873254980 S61.211D sutures removed without incident [id number] Colt Caballero MD [address] [place] [address] 01/04/2024 08:43:41 01/04/2024 09:55:26 Uncontrolled type 2 diabetes mellitus 686274865 E11.65 Major depr essive disorder 113572144 F32.9 Increased frequency of urination 630644372 R35.0 [id number] Colt Caballero MD [address] [place] [address] 02/01/2024 07:50:25 02/01/2024 08:34:45 Uncontrolled type 2 diabetes mellitus 858765046 E11.65 Major depr essive disorder 194246914 F32.9 Essential hypertension 48863550 I10 [id number] Colt Caballero MD [address] [address] 03/06/2024 09:34:59 03/06/2024 12:07:29 Major depressive disorder 467983937 F32.9 chronic, stable at this time Uncontroll ed type 2 diabetes mellitus 122541107 E11.65 down to 10.2 from 11.4 in 30 days, going well with new regimen [id number] Stephani Roman APRN [address] [place] [address] 03/12/2024 14:27:34 03/12/2024 15:18:12 Body mass index 30+ - obesity 741295991 Z68.33 Obesity 837978918 E66.9 Viral screening 65677281 4 Z11.59 Negative for influenza A and B per rapid screening Acute sinusitis 95936365 J01.90 [id number] Colt Caballero MD [address] [place] [address] 04/17/2024 14:30:52 04/17/2024 14:48:20 Major depressive disorder 343413752 F32.9 chronic, stable at this time Uncontroll ed type 2 diabetes mellitus 693263365 E11.65 down to 10.2 from 11.4 in 30 days, going well with new regimen Vitamin D deficiency 347 53420 E55.9 refill requested Chronic low back pain 27 6260782 M54.50 Upper resp iratory infection 81303015 J06.9 [id number] Colt Caballero MD [address] [place] [address] 05/23/2024 10:14:38 05/23/2024 11:49:09 Chronic low back pain 116702222 M54.50 [id number] Colt Caballero MD [address] [place] [address] 06/13/2024 08:55:13 06/13/2024 09:40:54 Uncontrolled type 2 diabetes mellitus 075398877 E11.65 down to 10.2 from 11.4 in 30 days, going well with new regimen Vitamin D deficiency 347 58966 E55.9 refill requested Major depr essive disorder 257780673 F32.9 chronic, stable at this time Essential hypertension 55937502 I10 chronic, stable at this time Chronic low back pain 27 6733673 M54.50 chronic, stable at this time [id number] Colt Caballero MD [address] [place] [address] 06/20/2024 14:46:51 06/20/2024 15:43:20 Uncontrolled type 2 diabetes mellitus [id number] E11.65 back to 11%, Pt educated, multiple material supplied, will improve dietary compliance [phone] Cristiana Renteria APRN [facility] [address] [place] [address] 07/28/2024 13:28:50 07/28/2024 14:38:44 Chronic low back pain [id number] M54.50 G89.29 MRI ordered at this time. Patient advised to rest initially and then slowly increase activity level. Recommende d supportive care including heat, rest, and stretching exercises. Recommende d Motrin or Tylenol as needed for pain. Advised patient to go immediatel y to the ED if patient experience s any neurologic al symptoms including changes in sensation or strength, loss of bowel or bladder control, or for worsening pain, new fever, or any other new or concerning symptoms. Patient to call office if symptoms worsen or if pain persists greater than 2 weeks. Chronic pa in of left upper limb [id number] M25.512 G89.29 Recommende d use of heating pad as needed for discomfort . Genuine st ress incontinence [id number] N39.3 Goals Section Goal Description Progress Status Start Date LastModified by Organization Details LastModified Time Lower A1C by 2 pts by next follow up in August None Recorded None active 025 Crystal Ashly Information not available 07/08/2024 18:12:02 Health Concerns Section Related Observation LastModified by Organization Detai ls LastModified Time None Recorded Concern Status LastModified by Organization Details LastModified Time Diabetes type 2, uncontrolled Active Crystal Ashly Not Available 07/08/2024 18:12 :02 Advance Directives Directive N: Payers Insurance Date Sequence Insurance Name Policy Number Policy Mijares Covered Member ID Mijares Member ID Guarantor Name 09/10/2024 [place] [facility] [place] BILL[place]MEDICAID) Stephani Resendiz [id number] Stephani Resendiz 11/17/2022 1 [place] [id number] Stephani Resendiz [id number] Stephani Resendiz 10/07/2018 1 *SELF PAY* Brooks Resendiz 09/10/2024 1 [employer] [facility] (MEDICAID O) Stephani Resendiz [id number] Stephani Resendiz 09/04/2023 MEDICAID-[facility] WRAP BILLING (MEDICAID) Stephani Resendiz [id number] Stephani Resendiz 05/21/2022 PAYMENT PLAN Stephani Resendiz Notes Date Note Type Note Provider Name and Address Organization Details Recorded Time 04/17/2024 text/html Pt presents for URI sx, and f/u mood sx, CLBP and DM2.Pt presents for 3-5 days of worsening cough (mostly dry, occasionally productive of franklin sputum, no hemoptysis), associated congestion and sore throat. Pt endorses subjective fevers and chills, intermittent wheezing and SoB but denies arthralgias, diarrhea, rashes, lymphadenopathy. Pt is a smoker. States did get Flu and Covid vaccs; endorses multiple sick contacts.Pt presents for f/u DM2. Pt states continued compliance with DM2 diet and meds. Last A1c 8.0% not drawn at this clinic. Pt has followed with [facility] in the past but is not doing so now. Pt checking AM fastings, reports most measurements in the 120s-130s. Denies s/sx consistent with hypoglycemia, denny dizziness, N/V, GI upset.Pt with dx of HTN, currently reasonably well controlled with current regimen. Pt does occasionally check BPs at home with no concerning findings, states most range 120s-130s/80s. Denies any worsening s/sx, in particular, new or worsening headaches, dizziness, visual or auditory changes, GI upset or unusual fatigue.Pt with hx of depression/anxiety; denies any significant mood changes. No worsening depression, spikes of anxiety, denies sleep/appetite/GI alterations, Stable with current regimen. Not currently following with counseling. Colt Caballero MD [address], [place], [address], [place] - [facility] 04/17/2024 17:32:17 05/23/2024 text/html Pt presents for CLBP with radiculopathy, ongoing for greater than 1.5 years. Pt describes pain as sharp and shooting, paraspinal in the T12-L1 area with radiation down the posterior left leg with pain going to the ankle, constant but waxes and wanes, worse with use, relieved by rest, warmth and NSAIDs to a modest degree. No bladder/bowel changes, no F/C, no new or worsening focal neurologic deficits. No red flag sx. Colt Caballero MD [address], [place], [address], [facility] - [facility] 05/23/2024 13:34:05 06/13/2024 text/html Pt presents for multiple comorbidities.Pt with DM2. Pt states continued compliance with DM2 diet and meds. Last A1c and was 11.4%. Pt has followed with [facility] in the past but is not doing so now. Pt checking AM fastings, states much improved compliance with meds and diet, reports most measurements in the 170s. Denies s/sx consistent with hypoglycemia, denny dizziness, N/V, GI upset.Pt with dx of HTN, currently reasonably well controlled with current regimen. Pt does occasionally check BPs at home with no concerning findings, states most range 120s-130s/80s. Denies any worsening s/sx, in particular, new or worsening headaches, dizziness, visual or auditory changes, GI upset or unusual fatigue.Pt s chronic low back currently stable with good control using current regimen. Pt reminded on good lifting technique, use of back brace and work/rest intervals. Colt Caballero MD [address], [place], [address], [facility] - [facility] 06/13/2024 16:43:14 06/20/2024 text/html Pt presents for f/u of labs drawn which showed A1c of 11.0%. Pt states poor dietary compliance, especially at work. Extensive discussion and education about good food choices, reviewed diet items that Pt and family would actually, gave demonstration of appropriate food portions. Pt understanding, agreeable and pleased to be given the information.5 minutes in chart review, 25 minutes in face to face time with Pt. Colt Caballero MD [address], [place], [address], [facility] - [facility] 06/20/2024 18:10:54 07/28/2024 text/html Patient presents with c/o low back pain and left shoulder pain x over a year . Patient reports she has used ibuprofen and Flexeril with no benefit. Reports back pain is constant. Reports back pain is worse with prolonged periods of sitting and with ambulation. Reports shoulder pain is constant. Patient reports grinding with rotation of shoulder. Endorses numbness in left fingers. Reports pain is 9/10. Patient also with c/o of intermittent urinary incontinence x 1 year. Occurs with sneezing, laughing and coughing. Denies fever, chest pain, SOA, dysuria, loss of bowel/bladder control, and n/v/d. Cristiana Renteria, [employer] [address], [place], [address], [place] - [facility] 07/28/2024 18:22:07 OBGyn Episode No OBEpisode recorded.
--- OUTSIDE RECORDS SUMMARY | 2024-10-06 09:32 | XMS_ITS | Data Portability ---
Author Organization [facility] Address [address] [place] [address] Care Team Providers Care Casing Crew Pusher Name Role Phone LORETO CARCAMO Primary Care Provider LORETO CARCAMO Referring Provider [phone] GRETCHEN BROOKE Primary Care Provider [phone] Assessment No assessment recorded. Plan of Treatment Reminders Order Date Submit Date Provider Last Modified By Organization Details Last Modified Time Details Appointments None recorded. Lab calprotect in, stool 2021 022 [email or web address] [facility] (Centralized Scheduling), [address], [place], [address], 3 13:23:54 tissue transgluta minase iga Ab, serum 2021 mrtinoi [facility] (Centralized Scheduling), [address], [place], [address], 3 13:23:55 gastrointe stinal pathogens panel, PCR, stool 2021 022 janina Escobar (Centralized Scheduling), [place], [address], 3 13:23:55 fecal fat, qualitativ e, stool 2021 022 mruggieri [facility] (Centralized Scheduling), [place], [address], 3 13:23:55 iga, quantitati ve, serum 2021 janina Luz (Centralized Scheduling), [address] [place] [address] [place], [address], 3 13:23:55 Referral None recorded. Procedures colonoscop y procedure (PROC) - PHYSICIAN ORDERS 1. Ensure patient is NPO and bowel prep complete. 0.9% normal saline @kvo preferably in right arm; IV patent to gravity. 3. Verify consent. Colonoscop y with possible biopsy with possible polypectom y. 4. On-Call to Endoscopy. 5. If prep not clear, give large volume enema and report results. 6. Draw pt/inr if patient on Coumadin Hold 2021 [email or web address] Luz (Outpatient Surgery), [address] [place] [address] Salud Leyva, [place], [address], 2 14:15:05 Surgeries None recorded. Imaging None recorded. Medication Orders Questran Light 4 gram oral powder [address] - [address], [address], 4 14:59:35 Golytely 236 gram-22.74 gram-6.74 gram-5.86 gram oral solution [address] - [address], [address], 4 14:59:36 Patient TargetsNo targets recorded. Patient InstructionsNo instructions recorded. Reason for Referral None Reported. Results Created Date Observation Date Name Description Value Unit Range Abnormal Flag Note LastModifiedBy Organization Detail LastModifiedTime 02/15/2002/14/2023 GLYCO HEMOG LOBIN (HGB A1C) note See Note Order ing Provi edmundo: Dung De León MD Not Available [address] [place], [address], 02/14/2023 09:32:45 02/15/20 23 02/14/2023 GLYCO HEMOG LOBIN (HGB A1C) glycohemoglo bin (HGB A1C) 10.1 % 4.5-6. 2 high Predi abete s: 5.7 - 6.4 Diabe stiven: >6.4 Glyce abigail contr ol for adult s with diabe stiven: <7.0 Not Available [address] , [place], [address], 02/14/2023 09:32:45 02/15/2002/14/2023 GLYCO HEMOG LOBIN (HGB A1C) performing lab see note - [facility] R [address] [facility] [address] Not Available [address] , [place], [address], 02/14/2023 09:32:45 02/15/20 23 02/14/2023 ELECT ROLYT ES PANEL note See Note Order ing Provi edmundo: Dung De León MD Not Available [address] , [place], [address], 02/14/2023 09:41:12 02/15/20 23 02/14/2023 ELECT ROLYT ES PANEL sodium 136 mmol/ L 136-14 5 normal Not Available [address] , [place], [address], 02/14/2023 09:41:12 02/15/20 23 02/14/2023 ELECT ROLYT ES PANEL potassium 3.9 mmol/ L 3.5-5. 1 normal Not Available [address] , [place], [address], 02/14/2023 09:41:12 02/15/20 23 02/14/2023 ELECT ROLYT ES PANEL chloride 99 mmol/ L 98-107 normal Not Available [address] , [place], [address], 02/14/2023 09:41:12 02/15/20 23 02/14/2023 ELECT ROLYT ES PANEL carbon dioxide 27 mmol/ L 24-33 normal Not Available [address] Salud Leyva, [place], [address], 02/14/2023 09:41:12 02/15/20 23 02/14/2023 ELECT ROLYT ES PANEL anion gap 13.9 mmol/ L 10-20 normal Not Available [address] , [place], [address], 02/14/2023 09:41:12 02/15/20 23 02/14/2023 ELECT ROLYT ES PANEL performing lab see note ML - [facility] R [address] [facility] [place] [address] Not Available [address] , [place], [address], 02/14/2023 09:41:12 02/15/20 23 02/14/2023 BLOOD UREA NITRO GEN note See Note Order ing Provi edmundo: Dung De León MD Not Available [address] , [place], [address], 02/14/2023 09:41:12 02/15/20 23 02/14/2023 BLOOD UREA NITRO GEN blood urea nitrogen 20 mg/dL 7-18 high Not Available [address] , [place], [address], 02/14/2023 09:41:12 02/15/20 23 02/14/2023 BLOOD UREA NITRO GEN performing lab see note ML - [facility] R [address] [facility] [place] [address] Not Available [address] [place], [address], 02/14/2023 09:41:12 02/15/20 23 02/14/2023 CREAT ININE W/GFR note See Note Order ing Provi edmundo: Dung De León MD Not Available [address] , [place], [address], 02/14/2023 09:41:13 02/15/20 23 02/14/2023 CREAT ININE W/GFR creatinine 0.74 mg/dL 0.55-1 .02 normal Not Available [address], [place], [address], 02/14/2023 09:41:13 02/15/2002/14/2023 CREAT ININE W/GFR GFR (estimated) 105 mL/mi n >60 normal [IM PIERRE NT]: The 2020 CKD-E PI equat ion is now the recom arminda d stand garrett. This versi on does not inclu de race, as do the 2008 and 2011 CKD-E PI creat inine and creat inine -cyst atin C equat ions. Kenyetta e note that the eGFR now repor darrell is gener ated by the new 2020 CKD-E PI equat ion, which decre ases the eGFR for black s by up to 10% and incre ases the eGFR for non-b lacks by up to 10% in taya rison to the old equat ion. To taya re a legac y eGFR to a curre nt value , a 2008 CKD-E PI calcu lator is easil y searc hable on the inter net. Calcu lated GFR: This calcu lated GFR is advoc ated by the Natio nal Kidne y Found ation to be used as an indic ator of Chron ic Kidne y Disea se (CKD) . 5 Stage s of Chron ic Kidne y Disea se. Stage 1 90 mL/mi n or more Healt hy kidne ys or Kidne y damag e with amie l or high GFR detai ls Stage 2 60 to 89 mL/mi n Kidne y damag e and mild decre ase in GFR detai ls Stage 3 30 to 59 mL/mi n Moder ate decre ase in GFR detai ls Stage 4 15 to 29 mL/mi n Sever e decre ase in GFR detai ls Stage 5 Less than 15 mL/mi n On dialy sis or Kidne y failu re Patie nt's clini cristin statu s must be consi dered for the care of your patie nt. Not Available [address] , [place], [address], 02/14/2023 09:41:13 02/15/20 23 02/14/2023 CREAT ININE W/GFR performing lab see note - [facility] R [address] [facility] [address] Not Available [address] , [place], [address], 02/14/2023 09:41:13 02/15/20 23 02/14/2023 CBC W/O DIFF note See Note Order ing Provi edmundo: Dung De León MD Not Available [address] , [place], [address], 02/14/2023 09:43:20 02/15/20 23 02/14/2023 CBC W/O DIFF white blood cell 7.5 10e3/ uL 4.5-13 .0 normal Not Available [address] Salud Leyva, [place], [address], 02/14/2023 09:43:20 02/15/20 23 02/14/2023 CBC W/O DIFF red blood cell 4.63 10e6/ uL 3.80-5 .10 normal Not Available [address] Salud Ley[place], [place], [address], 02/14/2023 09:43:20 02/15/20 23 02/14/2023 CBC W/O DIFF hemoglobin 13.1 g/dL 11.5-1 5.3 normal Not Available [address] Salud Ley[place], [place], [address], 02/14/2023 09:43:20 02/15/20 23 02/14/2023 CBC W/O DIFF hematocrit 39.5 % 34.0-4 6.0 normal Not Available [place] [address], [place], [address], 02/14/2023 09:43:20 02/15/20 23 02/14/2023 CBC W/O DIFF mean cell volume 85 fL 78.0-9 8.0 normal Not Available [place] [address], [place], [address], 02/14/2023 09:43:20 02/15/20 23 02/14/2023 CBC W/O DIFF mean cell HGB 28.3 pg 25.0-3 5.0 normal Not Available [address] Salud Le[place], [place], [address], 02/14/2023 09:43:20 02/15/20 23 02/14/2023 CBC W/O DIFF mean cell HGB concentratio n 33.2 g/dL 31.0-3 6.0 normal Not Available [place] [address], [place], [address], 02/14/2023 09:43:20 02/15/20 23 02/14/2023 CBC W/O DIFF red cell distribution width 13.3 % 11.0-1 5.0 normal Not Available [place] [address], [place], [address], 02/14/2023 09:43:20 02/15/20 23 02/14/2023 CBC W/O DIFF platelet count 223 10e3/ uL 150-40 0 normal Not Available [place] [address], [place], [address], 02/14/2023 09:43:20 02/15/20 23 02/14/2023 CBC W/O DIFF performing lab see note - [address] [place] [address] Not Available [address] , [place], [address], 02/14/2023 09:43:20 02/15/20 23 02/14/2023 FRUCT OSAMI NE note See Note Order ing Provi edmundo: Dung De León MD Not Available [address] , [place], [address], 02/15/2023 14:21:25 02/15/20 23 02/14/2023 FRUCT OSAMI NE fructosamine 303 umol/ L 0-285 high Publi shed refer ence inter yordy for appar ently healt hy subje cts betwe en age 20 and 60 is 205 - 285 umol/ L and in a poorl y contr olled diabe tic popul ation is 228 - 563 umol/ L with a mean of 396 umol/ L. Perfo rmed At: CB, [facility] [address] [place], [address]81 Tristin wood, PhD, Phone : [phone] Not Available [address] , [place], [address], 02/15/2023 14:21:25 02/15/20 23 02/14/2023 FRUCT OSAMI NE performing lab see note LC2 - LABCO RP CLIEN T# [id number] [place] [address] Not Available [address] , [place], [address], 02/15/2023 14:21:25 02/16/20 23 02/15/2023 FRUCT OSAMI NE note See Note Order ing Provi edmundo: Home a Mony Posto n HAND KISS SETTER/ CHILD DEVELOPMENT CONSULTANT Not Available [address] , [place], [address], 02/16/2023 08:19:15 02/16/20 23 02/15/2023 FRUCT OSAMI NE fructosamine 319 umol/ L 0-285 high Publi shed refer ence inter yordy for appar ently healt hy subje cts betwe en age 20 and 60 is 205 - 285 umol/ L and in a poorl y contr olled diabe tic popul ation is 228 - 563 umol/ L with a mean of 396 umol/ L. Perfo rmed At: CB, [facility] [place] [address] [facility], [place], [address] Tristin lee wood, PhD, Phone : [phone] Not Available [address] , [place], [address], 02/16/2023 08:19:15 02/16/20 23 02/15/2023 FRUCT OSAMI NE performing lab see note LC2 - LABCO RP CLIEN T# [id number] [address] [place] [address] [address] , [place], [address], 02/16/2023 08:19:15 05/01/19 24 05/01/2023 GLYCO HEMOG LOBIN (HGB A1C) note See Note Order ing Provi edmundo: Home Sykes Posto n HAND KISS SETTER/ CHILD DEVELOPMENT CONSULTANT Not Available [address] [place], [address], 05/01/2023 13:24:21 05/01/19 24 05/01/2023 GLYCO HEMOG LOBIN (HGB A1C) glycohemoglo bin (HGB A1C) 8.6 % 4.5-6. 2 high Predi abete s: 5.7 - 6.4 Diabe stiven: >6.4 Glyce abigail contr ol for adult s with diabe stiven: <7.0 Not Available [address] , [place], [address], 05/01/2023 13:24:21 05/01/19 24 05/01/2023 GLYCO HEMOG LOBIN (HGB A1C) performing lab see note ML - [facility] R [address] [place] [place] [address] Not Available [address] , [place], [address], 05/01/2023 13:24:21 05/01/19 24 05/01/2023 FRUCT OSAMI NE note See Note Order ing Provi edmundo: Home Sykes Posto n HAND KISS SETTER/ CHILD DEVELOPMENT CONSULTANT Not Available [address] , [place], [address], 05/02/2023 08:24:38 05/01/19 24 05/01/2023 FRUCT OSAMI NE fructosamine 256 umol/ L 0-285 Publi shed refer ence inter yordy for appar ently healt hy subje cts betwe en age 20 and 60 is 205 - 285 umol/ L and in a poorl y contr olled diabe tic popul ation is 228 - 563 umol/ L with a mean of 396 umol/ L. Perfo rmed At: CB, [facility] [address] [facility], [place], [address] Tristin wood, PhD, Phone : [phone] Not Available [address] , [place], [address], 05/02/2023 08:24:38 05/01/19 24 05/01/2023 FRUCT OSAMI NE performing lab see note LC2 - LAB[facility] RP BIBIANA T# [id number] [place] [address] Not Available [address] [place], [address], 05/02/2023 08:24:38 05/14/19 24 05/14/2023 CBC W/O DIFF note See Note Order ing Provi edmundo: Dung De León MD Not Available [address] [place]ud [place], [place], [address], 05/14/2023 11:01:16 05/14/19 24 05/14/2023 CBC W/O DIFF white blood cell 8.3 10e3/ uL 4.5-13 .0 normal Not Available [address] Salud Le[place], [place], [address], 05/14/2023 11:01:16 05/14/19 24 05/14/2023 CBC W/O DIFF red blood cell 4.84 10e6/ uL 3.80-5 .10 normal Not Available [address] Salud [place], [place], [address], 05/14/2023 11:01:16 05/14/19 24 05/14/2023 CBC W/O DIFF hemoglobin 13.8 g/dL 11.5-1 5.3 normal Not Available [address] Salud Le[place], [place], [address], 05/14/2023 11:01:16 05/14/19 24 05/14/2023 CBC W/O DIFF hematocrit 40.8 % 34.0-4 6.0 normal Not Available [address] Salud Le[place], [place], [address], 05/14/2023 11:01:16 05/14/19 24 05/14/2023 CBC W/O DIFF mean cell volume 84 fL 78.0-9 8.0 normal Not Available [address] Salud Le[place], [place], [address], 05/14/2023 11:01:16 05/14/19 24 05/14/2023 CBC W/O DIFF mean cell HGB 28.5 pg 25.0-3 5.0 normal Not Available [address] , [place], [address], 05/14/2023 11:01:16 05/14/19 24 05/14/2023 CBC W/O DIFF mean cell HGB concentratio n 33.8 g/dL 31.0-3 6.0 normal Not Available [address] , [place], [address], 05/14/2023 11:01:16 05/14/19 24 05/14/2023 CBC W/O DIFF red cell distribution width 13.5 % 11.0-1 5.0 normal Not Available [address] , [place], [address], 05/14/2023 11:01:16 05/14/19 24 05/14/2023 CBC W/O DIFF platelet count 253 10e3/ uL 150-40 0 normal Not Available [address] , [place], [address], 05/14/2023 11:01:16 05/14/19 24 05/14/2023 CBC W/O DIFF performing lab see note - [facility] [address] [facility] [address] Not Available [address] Salud Le[place], [place], [address], 05/14/2023 11:01:16 05/14/19 24 05/14/2023 ELECT ROLYT ES PANEL note See Note Order ing Provi edmundo: Dung De León MD Not Available [address] [place], [place], [address], 05/14/2023 11:41:13 05/14/19 24 05/14/2023 ELECT ROLYT ES PANEL sodium 137 mmol/ L 136-14 5 normal Not Available [address] , [place], [address], 05/14/2023 11:41:13 05/14/19 24 05/14/2023 ELECT ROLYT ES PANEL potassium 4.2 mmol/ L 3.5-5. 1 normal Not Available [address] , [place], [address], 05/14/2023 11:41:13 05/14/19 24 05/14/2023 ELECT ROLYT ES PANEL chloride 100 mmol/ L 98-107 normal Not Available [address] , [place], [address], 05/14/2023 11:41:13 05/14/19 24 05/14/2023 ELECT ROLYT ES PANEL carbon dioxide 24 mmol/ L 24-33 normal Not Available [address] , [place], [address], 05/14/2023 11:41:13 05/14/19 24 05/14/2023 ELECT ROLYT ES PANEL anion gap 17.2 mmol/ L 10-20 normal Not Available [address] Salud [place], [place], [address], 05/14/2023 11:41:13 05/14/19 24 05/14/2023 ELECT ROLYT ES PANEL performing lab see note - [address] [facility] [address] Not Available [address] Sal[place], [place], [address], 05/14/2023 11:41:13 05/14/19 24 05/14/2023 BLOOD UREA NITRO GEN note See Note Order ing Provi edmundo: Dung De León MD Not Available [address] , [place], [address], 05/14/2023 11:41:14 05/14/19 24 05/14/2023 BLOOD UREA NITRO GEN blood urea nitrogen 16 mg/dL 7-18 normal Not Available [address] , [place], [address], 05/14/2023 11:41:14 05/14/19 24 05/14/2023 BLOOD UREA NITRO GEN performing lab see note ML - [facility] R [address] [facility] [address] Not Available [address] , [place], [address], 05/14/2023 11:41:14 05/14/19 24 05/14/2023 CREAT ININE W/GFR note See Note Order ing Provi edmundo: Dung De León MD Not Available [address] , [place], [address], 05/14/2023 11:41:14 05/14/19 24 05/14/2023 CREAT ININE W/GFR creatinine 0.75 mg/dL 0.55-1 .02 normal Not Available [address] , [place], [address], 05/14/2023 11:41:14 05/14/19 24 05/14/2023 CREAT ININE W/GFR GFR (estimated) 103 mL/mi n >60 normal [IM PIERRE NT]: The 2020 CKD-E PI equat ion is now the recom arminda d stand garrett. This versi on does not inclu de race, as do the 2008 and 2011 CKD-E PI creat inine and creat inine -cyst atin C equat ions. Kenyetta e note that the eGFR now repor darrell is gener ated by the new 2020 CKD-E PI equat ion, which decre ases the eGFR for black s by up to 10% and incre ases the eGFR for non-b lacks by up to 10% in taya rison to the old equat ion. To taya re a legac y eGFR to a curre nt value , a 2009 CKD-E PI calcu lator is easil y seagideon hable on the inter net. Calcu lated GFR: This calcu lated GFR is advoc ated by the Natio nal Kidne y Found ation to be used as an indic ator of Chron ic Kidne y Disea se (CKD) . 5 Stage s of Chron ic Kidne y Disea se. Stage 1 90 mL/mi n or more Healt hy kidne ys or Kidne y damag e with amie l or high GFR detai ls Stage 2 60 to 89 mL/mi n Kidne y damag e and mild decre ase in GFR detai ls Stage 3 30 to 59 mL/mi n Moder ate decre ase in GFR detai ls Stage 4 15 to 29 mL/mi n Sever e decre ase in GFR detai ls Stage 5 Less than 15 mL/mi n On dialy sis or Kidne y failu re Patie nt's clini cristin statu s must be consi dered for the care of your patie nt. Not Available [address] , [place], [address], 05/14/2023 11:41:14 05/14/19 24 05/14/2023 CREAT ININE W/GFR performing lab see note ML [facility] [address] [facility] [address] Not Available [address] , [place], [address], 05/14/2023 11:41:14 05/24/19 24 05/24/2023 UR HCG QUAL note See Note Order ing Provi edmundo: Angelo Lanza DO Not Available [address] , [place], [address], 05/24/2023 11:03:56 05/24/19 24 05/24/2023 UR HCG QUAL ur HCG qual NEGATI VE negati ve Not Available [address] , [place], [address], 05/24/2023 11:03:56 05/24/19 24 05/24/2023 UR HCG QUAL performing lab see note - [facility] R [address] [place] [address] CHELA SHARMA [address] Not Available [address] , [place], [address], 05/24/2023 11:03:56 05/24/19 24 05/24/2023 GLUCO SE POINT OF CARE note See Note Order ing Provi edmundo: Angelo Lanza DO Not Available [address] , [place], [address], 05/24/2023 11:27:27 05/24/19 24 05/24/2023 GLUCO SE POINT OF CARE glucose point of care 81 mg/dL 70-99 normal Not Available [address] , [place], [address], 05/24/2023 11:27:27 05/24/19 24 05/24/2023 GLUCO SE POINT OF CARE performing lab see note [facility] [address] [place] [address] Dr Jessica SHARMA [address] Not Available [address] , [place], [address], 05/24/2023 11:27:27 10/29/19 24 10/29/2023 GLYCO HEMOG LOBIN (HGB A1C) note See Note Order ing Provi edmundo: Angelo Lanza DO Not Available [address] , [place], [address], 10/29/2023 09:59:37 10/29/19 24 10/29/2023 GLYCO HEMOG LOBIN (HGB A1C) glycohemoglo bin (HGB A1C) 9.6 % 4.5-6. 2 high Predi abete s: 5.7 - 6.4 Diabe stiven: >6.4 Glyce abigail contr ol for adult s with diabe stiven: <7.0 Not Available [address] , [place], [address], 10/29/2023 09:59:37 10/29/19 24 10/29/2023 GLYCO HEMOG LOBIN (HGB A1C) performing lab see note ML - [facility] [address] [place] [address] Not Available [address] , [place], [address], 10/29/2023 09:59:37 10/29/19 24 10/29/2023 FRUCT OSAMI NE note See Note Order ing Provi edmundo: Angelo Lanza DO Not Available [address] , [place], [address], 10/30/2023 12:13:40 10/29/19 24 10/29/2023 FRUCT OSAMI NE fructosamine 353 umol/ L 0-285 high Publi shed refer ence inter yordy for appar ently healt hy subje cts betwe en age 20 and 60 is 205 - 285 umol/ L and in a poorl y contr olled diabe tic popul ation is 228 - 563 umol/ L with a mean of 396 umol/ L. Perfo rmed At: CB, Labco rp [facility] [address] [facility], [place], [address] Tristin lee wood, PhD, Phone : [phone] Not Available [address] , [place], [address], 10/30/2023 12:13:40 10/29/19 24 10/29/2023 FRUCT OSAMI NE performing lab see note LC2 - LABCO RP BIBIANA T# [id number] [place] [address] [address] , [place], [address], 10/30/2023 12:13:40 02/15/20 23 02/14/2023 XR, chest , 2 view [place] [facility] Ce Name: MAITE WARREN[address] Phys: [place] [address] : 1980 Age: 42 Sex: F Acct: [id number] Loc: G.RAD PHONE #: Exam Date: 2022 Status : REG CLI FAX #: [phone] Rad# [id number] Unit# [id number] Admit Date: 2022 EXAMS: CPT CODE: [id number] CHEST 2 VIEWS 67717 PA AND LATERA L CHEST, 2022: CLINIC AL HISTOR Y: Preope rative examin ation for right carpal tunnel releas e. Histor y of hypert ension . COMPAR TAINA: PA and latera l chest, 10/08/19 21 FINDIN GS: The cardio medias tinal silhou ette is within normal limits . The lung volume s are low withou t pleura l fluid or focal consol idatio n. There is mild multil evel osteop hytosi s of the thorac ic spine. IMPRES PARKER: 1. Stable chest withou t eviden ce of acute cardio pulmon nadeem diseas e. Electr onical ly Signed by RADHA BRITO MD on 2022 at 0942 Report ed and signed by: RADHA BRITO MD CC: Dictat ed Date/T jay: 2022 (0942) Techno logist : SOLITARIO Hall RT(R)( CT) Transc ribed Date/T jay: 2022 (0942) Transc riptio nist: DR.HAG LUIS Wallis onic Signat ure Date/T jay: 2022 (0942) Printe d Date/T jay: 2022 (0944) BATCH NO: N/A PAGE 1 Signed Report CC'ed Logic: Orderi ng Provid er: GENET PAULSON Attend ing Provid er: GENET PAULSON Referr ing Provid er: GENET PAULSON Consul ting Provid er: MYRON KALANI goodman [address] , [place], [address], 02/14/2023 09:50:50 05/14/19 24 05/14/2023 XR, chest , 2 view [place] [facility] Ce Name: KELVIN MAITE MERCEDES [employer] Phys: Presley De [place]ón [place] [address] : 1980 Age: 42 Sex: F Acct: [id number] Loc: [facility] PHONE #: Exam Date: 2023 Status : REG CLI FAX #: [phone] Rad# [id number] Unit# [id number] Admit Date: 2023 EXAMS: CPT CODE: [id number] 327 CHEST 2 VIEWS [id number] CLINIC AL INFORM ATION: Preop orthop edic proced ure. Former smoker COMPAR TAINA: 2022 and older studie s FINDIN GS: [place] and latera l projec tions obtain ed. Lungs well expand ed and withou t infilt rate or effusi on. Heart and vascul arity within normal limits . No gross osseou s pathol ogy. IMPRES PARKER: 1. No acute cardio pulmon andeem abnorm ality. COMMUN ICATIO N: Per this writte n report This report is genera darrell using voice recogn ition comput er softwa re. Inadve rtent errors may have occurr ed while dictat ing report . Common sense approa ch is apprec iated and do not hesita te to call for clarif icatio n when necess nadeem. Electr onical ly Signed by Radha Hall on 2023 at 1156 Report ed and signed by: RABIA Hall M.D. PAGE 1 Signed Report (DYLAN NUED) [facility] [facility] Name: MAITE WARREN [employer] Phys: Presley De León MD [place], [place] [address] : 1980 Age: 42 Sex: F Acct: [id number] Loc: YESSY PHONE #: Exam Date: 2023 Status : REG CLI FAX #: Rad# [id number] Unit# [id number] Admit Date: 2023 EXAMS: CPT CODE: [id number] CHEST 2 VIEWS 67000 CC: Alison freeman HAND KISS SETTER; Francesco De León MD Dictat ed Date/T jya: 2023 (1156) Techno logist : MARQUISE BELLAM Y Transc ribed Date/T jay: 2023 (1156) Transc riptio nist: DR.HAR MJ Wallis onic Signat ure Date/T jay: 2023 (1156) Printe d Date/T jay: 2023 (1159) BATCH NO: N/A PAGE 2 Signed Report CC'ed Logic: Orderi ng Provid er: GENET PAULSON Attend ing Provid er: GENET PAULSON Referr ing Provid er: GENET PAULSON Consul ting Provid er: [facility] [address], [address], 05/14/2023 13:07:09 Result Notes Documentation Provider Name and Address Organization Details Recorded Time Xr, Chest, 2 View : [facility] Ce Name: STEPHANI WARREN [address] [place] [address] Phys: Francesco De [place]ón [place] [address] : 1980 Age: 42 Sex: F Acct: [id number] Loc: YESSY PHONE #: Exam Date: 02/14/2023 Status: REG CLI FAX #: Rad# [id number] Unit# [id number] Admit Date: 02/14/2023 EXAMS: CPT CODE: [id number] CHEST 2 VIEWS 59502 PA AND LATERAL CHEST, 02/14/2023: CLINICAL HISTORY: Preoperative examination for right carpal tunnel release. History of hypertension. COMPARISON: PA and lateral chest, 10/07/2020 FINDINGS: The cardiomediastinal silhouette is within normal limits. The lung volumes are low without pleural fluid or focal consolidation. There is mild multilevel osteophytosis of the thoracic spine. IMPRESSION: 1. Stable chest without evidence of acute cardiopulmonary disease. at 0942 Reported and signed by: AMARILYS LOWE MD CC: Dictated Date/Time: 02/14/2023 (09) Technologist: SOLITARIO HENDERSON RT(R)(CT) Transcribed Date/Time: 02/14/2023 (941) Database Coordinator: Electronic Signature Date/Time: 02/14/2023 (941) Printed Date/Time: 02/14/2023 (09) BATCH NO: N/A PAGE 1 Signed Report CC'ed Logic: Ordering Provider: GENET PAULSON Attending Provider: GENET PAULSON Referring Provider: GENET PAULSON Consulting Provider: [facility]LOS [facility]O [facility] 02/14/2023 09:50:50 Xr, Chest, 2 View : [facility] Ce Name: STEPHANI WARREN [address] [place] [address] Phys: Francesco De [place]ón [place] [address] : 1980 Age: 42 Sex: F Acct: [id number] Loc: QueenieRAD PHONE #: Exam Date: 05/14/2023 Status: REG CLI FAX #: Rad# [id number] Unit# [id number] Admit Date: 05/14/2023 EXAMS: CPT CODE: [id number] CHEST 2 VIEWS 65837 CLINICAL INFORMATION: Preop orthopedic procedure. Former smoker COMPARISON: 04/01/2023 and older studies FINDINGS: PA and lateral projections obtained. Lungs well expanded and without infiltrate or effusion. Heart and vascularity within normal limits. No gross osseous pathology. IMPRESSION: 1. No acute cardiopulmonary abnormality. COMMUNICATION: Per this written report This report is generated using voice recognition computer software. Inadvertent errors may have occurred while dictating report. Common sense approach is appreciated and do not hesitate to call for clarification when necessary. at 1156 Reported and signed by: JEN ROSENTHAL M.D. PAGE 1 Signed Report (CONTINUED) [facility] Ce Name: STEPHANI WARREN [facility] Phys: Genet SILVA,[place] [address] : 1980 Age: 42 Sex: F Acct: [id number] Loc: YESSY PHONE #: Exam Date: 05/14/2023 Status: REG CLI FAX #: Rad# [id number] Unit# [id number] Admit Date: 05/14/2023 EXAMS: CPT CODE: [id number] CHEST 2 VIEWS 48826 CC: Alison Reeves APRN; Francesco De León MD Dictated Date/Time: 05/14/2023 (1156) Technologist: MARQUISE STOCK Transcribed Date/Time: 05/14/2023 (1156) Database Coordinator: Electronic Signature Date/Time: 05/14/2023 (1156) Printed Date/Time: 05/14/2023 (1159) BATCH NO: N/A PAGE 2 Signed Report CC'ed Logic: Ordering Provider: GENET PAULSON Attending Provider: GENET PAULSON Referring Provider: GENET PAULSON Consulting Provider: EDITH Gtz [facility] [place] [facility] [place] 05/14/2023 13:07:09 Problems Name Problem SNOMED Code Status Onset Date Resolution Date Notes Provider Name and Address Organization Details Recorded Time Chronic pain of left upper limb 3079457422119 9103 Active EDITH Davis [facility] - [place] [facility] [place] 2 11:00:59 Insulin treated type 2 diabetes mellitus 548654017 Active EDITH Davis [facility] - [place] [facility] [place] 2 11:00:59 Cervical radiculitis 67329054 Active Cristiana calle, EDITH - [facility] & [place] 2 11:00:59 Osteoarthri tis of left knee joint 4708380709520 09 Active Cristiana calle, EDITH - [facility] - [place] [facility] [place] 2 11:00:59 Body mass index 30+ - obesity 381739123 Active Cristiana calle, EDITH Dangelo [facility] - [place] [facility] [place] 2 11:00:59 Knee locking 2991426 Active Cristiana calle, EDITH - [facility] - [place] [facility] [place] 2 11:00:59 Biliary dyskinesia 733641053 Active Cristiana calle, EDITH Dangelo [facility] - [place] [facility] [place] 2 11:00:59 Long-term current use of insulin 326519658 Active Cristiana calle, EDITH - [facility] & [place] 2 11:00:59 Osteoarthri tis of knee 072383293 Active Cristiana calle, EDITH - [facility] - [place] [facility] [place] 2 11:00:59 Diarrhea 61886644 Active 2021 Eugenio Foy MD [address] [place] [address],[address], [address] [place] [address] - [facility] & [place] 2 13:41:27 Chronic diarrhea 411757785 Active 2021 Eugenio Foy MD [address] [place] [address],[address], [address] - [facility] & [place] 2 14:26:50 Problem Notes None recorded. Procedures Surgical History Date Name Laterality Status Provider Name and Address Organization Details Recorded Time 10/16/19 21 arthroscopy of knee completed Cristiana Morocho EDITH Dangelo [facility] & [place] 12/15/2021 11:14:31 04/02/19 21 Other completed Adi Brunner [facility] & [place] 02/06/2022 14:05:20 04/02/19 06 Appendectomy completed Adi KEVIN [facility] & [place] 02/06/2022 14:05:20 04/02/19 02 Other completed Adi KEVIN - [place] [facility] [place] 02/06/2022 14:05:20 04/02/18 86 Other completed Adi KEVIN - [place] [facility] [place] 02/06/2022 14:05:20 Appendectomy completed Cristiana KEVIN [facility] & [place] 12/15/2021 11:04:13 procedure on ankle completed Cristiana Morocho EDITH KEVIN - [place] [facility] [place] 12/15/2021 11:04:59 Unlisted muscskel px head completed Cristiana Bailee EDITH KEVIN [facility] & [place] 12/15/2021 11:05:15 cholecystectomy completed Cristiana Bailee EDITH KEVIN [facility] & [place] 12/15/2021 11:14:01 Imaging Results None recorded. Procedure Notes None recorded. Medical Equipment None Reported. Allergies Allergen ID Allergen Name Allergen Category Reaction Reaction Severity Criticality Documentation Date Start Date Code Code System Note Provider Name and Address Organization Details Recorded Time 30439 metformin medicatio n Not available Not available Not available 12/15/2021 6809 RxNorm Cristiana calle EDITH KEVIN [facility] & [place] 2 11:00:58 00901 sumatript an medicatio n rash Not available Not available 12/15/2021 53524 RxNorm Cristiana calle EDITH KEVIN [facility] & [place] 2 11:00:58 328818 Carrasyn Hydrogel Wound Dress medicatio n hives severe Not available 10/09/2023 08109 BISI calle EDITH Dangelo [facility] & [place] 4 14:59:30 Medications Name Sig Start Date Stop Date Status Note LastModified by Organization Details LastModified Time cyclobenzap rine 10 mg tablet 02/06 completed Not Available Not Available Not Available medroxyprog esterone 10 mg tablet 06/07 completed Not Available Not Available Not Available atorvastati n 40 mg tablet TAKE 1 TABLET BY MOUTH EVERY DAY IN THE EVENING active Not Available Not Available No t Available acetaminoph en 325 mg tablet active Not Available Not Available Not Available prednisone 10 mg tablet 02/06 completed Not Available Not Available Not Available ibuprofen 800 mg tablet TAKE ONE (1) TABLET EVERY 8 HOURS BY ORAL ROUTE NEEDED FOR 14 DAYS. active Not Available Not Available No t Available benzonatate 200 mg capsule 06/07 completed Not Available Not Available Not Available cephalexin 250 mg capsule active Not Available Not Available Not Available hydrocodone 5 mg-acetamin ophen 325 mg tablet 06/07 completed Not Available Not Available Not Available prednisone 20 mg tablet 02/06 completed Not Available Not Available Not Available sertraline 100 mg tablet TAKE TWO (2) TABLETS BY MOUTH ONCE DAILY FOR DEPRESSIO N active Not Available Not Available No t Available penicillin V potassium 500 mg tablet 02/06 completed Not Available Not Available Not Available metronidazo le 500 mg tablet 02/06 completed Not Available Not Available Not Available dicyclomine 20 mg tablet active Not Available Not Available Not Available bupropion HCl 75 mg tablet Take 1 tablet every day by oral route. 06/07 completed Not Available Not Available Not Available Prevalite 4 gram powder for suspension in a packet Take by oral route for 30 days. 06/07 completed Not Available Not Available Not Available omeprazole 20 mg capsule,del ayed release TAKE ONE (1) CAPSULE BY MOUTH ONCE DAILY active Not Available Not Available No t Available ibuprofen 600 mg tablet 06/07 completed Not Available Not Available Not Available methylpredn isolone 4 mg tablets in a dose pack 02/06 completed Not Available Not Available Not Available albuterol sulfate HFA 90 mcg/actuati on aerosol inhaler 06/07 completed Not Available Not Available Not Available sertraline 50 mg tablet 06/07 completed Not Available Not Available Not Available lisinopril 2.5 mg tablet TAKE ONE (1) TABLET BY MOUTH ONCE DAILY active Not Available Not Available No t Available dicyclomine 10 mg capsule TAKE ONE (1) CAPSULE BY MOUTH THREE TIMES DAILY active Not Available Not Available No t Available insulin aspar prot-insuli n aspart 100 unit/mL (70-30) subcutaneou s pen INJECT 8 UNITS THREE (3) TIMES A DAY BY SUBCUTANE OUS ROUTE WITH MEALS FOR 30 DAYS. 06/07 completed Not Available Not Available Not Available bupropion HCl XL 150 mg 24 hr tablet, extended release 02/06 completed Not Available Not Available Not Available chlorhexidi ne gluconate 0.12 % mouthwash 06/07 completed Not Available Not Available Not Available atorvastati n 02/06 completed Not Available Not Available Not Available omeprazole 02/06 completed Not Available Not Available Not Available lisinopril 02/06 completed Not Available Not Available Not Available Vitamin D3 02/06 completed Not Available Not Available Not Available bupropion HCl 02/06 completed Not Available Not Available Not Available Novolog FlexPen U-100 Insulin 02/06 completed Not Available Not Available Not Available Golytely 236 gram-22.74 gram-6.74 gram-5.86 gram oral solution take as per office instructi ons 06/07 completed Not Available Not Available Not Available Lantus Solostar U-100 Insulin 100 unit/mL (3 mL) subcutaneou s pen INJECT 68 UNITS EVERY DAY BY SUBCUTANE OUS ROUTE IN THE EVENING RX WILL LAST 44 DAYS 06/07 completed Not Available Not Available Not Available Questran Light 4 gram oral powder Take 1 scoop twice a day by oral route for 30 days. 06/07 completed Not Available Not Available Not Available Lantus Solostar U-100 Insulin 06/07 completed Not Available Not Available Not Available cholecalcif lucian (vitamin D3) 50 mcg (2,000 unit) capsule TAKE ONE (1) CAPSULE BY MOUTH ONCE DAILY active Not Available Not Available No t Available OneTouch Verio test strips USE TO TEST BLOOD SUGAR THREE (3) TIMES DAILY active Not Available Not Available No t Available Farxiga 10 mg tablet TAKE ONE TABLET BY MOUTH DAILY active Not Available Not Available No t Available Vraylar 1.5 mg capsule TAKE ONE (1) CAPSULE EVERY DAY BY ORAL ROUTE FOR 30 DAYS. 06/07 completed Not Available Not Available Not Available Ozempic 0.25 mg or 0.5 mg (2 mg/1.5 mL) subcutaneou s pen injector 02/06 completed Not Available Not Available Not Available Toujeo Max U-300 SoloStar 300 unit/mL (3 mL) subcutaneou s insulin pen active Not Available Not Available Not Available Dexcom G6 Sensor device 06/07 completed Not Available Not Available Not Available Dexcom G6 Gravity Prospecting Operator 06/07 completed Not Available Not Available Not Available Dexcom G6 Transmitter device 06/07 completed Not Available Not Available Not Available OneTouch Delica Plus Lancet 33 gauge USE DIRECTED TO TEST BLOOD SUGAR THREE (3) TIMES DAILY active Not Available Not Available No t Available [facility] ODT 75 mg disintegrat ing tablet TAKE ONE (1) TABLET EVERY OTHER DAY BY ORAL ROUTE. active Not Available Not Available No t Available OneTouch Verio Reflect Meter active Not Available Not Available Not Available Ozempic 0.25 mg or 0.5 mg (2 mg/3 mL) subcutaneou s pen injector DIAL AND INJECT UNDER THE SKIN 0.5 MG WEEKLY FOR FOUR (4) WEEKS active Not Available Not Available No t Available Vitals Date Recorded Body height Provider Name an d Address Organization Details Last Updated DateTime 10/09/2023 165.1 cm Sherin SHARMA [facility] & [place] 10/09/2023 14:59:24 Date Recorded Body height Body temperature Heart rate Respiratory rate Systolic And Diastolic Provider Name and Address Organization Details Last Updated DateTime 3 165.1 cm 96 [degF] 72 /min 16 /min 120/64 mm[Hg] Sherin Cuadramakayla SHARMA [facility] & [place] 3 09:55:13 Date Recorded Body height Body mass index (BMI) Body weight Body temperature Heart rate Respiratory rate Systolic And Diastolic Provider Name and Address Organization Details Last Updated DateTime 2 165.1 cm 32.3 kg/m2 95451.3 6 g 97.6 [degF] 64 /min 18 /min 126/92 mm[Hg] Adi SHARMA [facility] & [place] 2 14:04:44 Social History Question Answer Notes LastModified by Organizat ion Details LastModified Time Tobacco Smoking Status Never Smoker EDITH Davis [facility] & [place] 12/15/2021 11:03:56 What Is Your Level Of Caffeine Consumption? Moderate [email or web address] Information not available 01/25/2023 What Type Of Diet Are You Following? DIABETIC [email or web address] Information not available 01/25/2023 How Many Children Do You Have? 0 [email or web address] Information not available 01/25/2023 What Is Your Relationship Status? Other [email or web address] Information not available 01/25/2023 Sex: Female Functional Status Question Answer Note LastModified by Organizat ion Details LastModified Time Do you use any illicit or recreational drugs? No Information not available 02/06/2022 What is your level of alcohol consumption? None [email or web address] Information not available 12/15/2021 What is your exercise level? Occasional Information not available 02/06/2022 Mental Status Question Answer Note LastModified by Organization D etails LastModified Time Do you feel stressed (tense, restless, nervous, or anxious, or unable to sleep at night)? [id number] Information not available 02/06/2022 Family History Relationship Description Onset Age of this Age Resolved Age Notes LastModified by Organization Details LastModified Time Mother Hypercholest erolemia pt. added direct ly (12/15) [email or web address] Not available 12/15/2021 10:27:10 Mother Hypertensive disorder pt. added direct ly (12/15) [email or web address] Not available 12/15/2021 10:27:10 Medical History Condition Response Coronary Artery Disease N Gout N Colon Cancer N Kidney Stones N Hyperthyroidism N Depression Y COPD N Hypothyroidism N Osteoporosis/Osteopenia N Diverticulitis/Diverticulosis N Colon Polyps N Anxiety Disorder N Diabetes Y Bleeding Disorder N Arthritis Y Seizures/Epilepsy N Tuberculosis N Hyperlipidemia Y Cancer N Stroke N Asthma N Sleep Apnea N GERD/Reflux Y High Cholesterol Y Hepatitis N Cirrhosis N Liver Disease N Heart Disease N Hypertension Y Kidney Disease N Gynecological HistoryNo gynecological history recorded. Obstetrics History GPAL:G 0 P 0 0 0 0 Immunizations Vaccine Type Date Status Note Provider Nam e and Address Organization Details Recorded Time Influenza, recombinant, quadrivalent, PF 12/21/2018 completed EDITH Hoffman - [place] [facility] [place] 01/04/2023 09:51:49 Influenza, recombinant, quadrivalent, PF 12/27/2022 completed EDITH [facility] 01/04/2023 09:51:49 Past Encounters Encounter ID Performer Location Encounter Start Date Encounter Closed Date Diagnosis/Indication Diagnosis SNOMED-CT Code Diagnosis ICD10 Code Diagnosis Note [id number] Francesco De León MD Derik [facility] [address] [place] [address] 12/15/2021 10:16:16 12/15/2021 11:34:23 Pain of left shoulder joint 0347074193 5255968 M25.512 [id number] Eugenio Foy MD [facility] [address] [facility] [place] [address] 02/06/2022 12:50:29 02/06/2022 16:30:48 Chronic diarrhea 521739468 K52.9 Persisted, workup ordered at last visit never accomplish ed. Will reorder at this time the importance of compliance with recommende d testing reviewed with patient. Will try the patient on Questran as a empiric approach to treating her diarrhea. If stool studies negative will proceed with colonoscop y, however patient was informed that if her stool studies are not accomplish ed her colonoscop y will need to be canceled Noncomplia nce with diagnostic testing 853510336 Z91.199 [id number] Francesco De León MD Derik [address] [address] 01/04/2023 09:47:23 01/04/2023 10:17:36 Carpal tunnel syndrome of right wrist 6447516234 81248 G56.01 [id number] [facility] [address] [address] 01/25/2023 14:35:05 01/25/2023 15:24:57 Ulnar nerve entrapment at elbow 671968717 G56.21 Carpal [place] julio syndrome of right wrist 7170813494 59759 G56.01 Carpal [place] julio syndrome of left wrist 9375406715 83367 G56.02 Entrapment of left ulnar nerve at elbow 9249316251 G56.22 [id number] ANGELO LANZA DO CATY [facility] [place] [address] 06/08/2023 09:12:07 06/08/2023 09:38:51 Postoperative visit 069159257 Z48.89 [id number] ANGELO DO MYLA [facility] [address] [place] [address] 10/09/2023 14:34:49 10/09/2023 15:13:59 Carpal tunnel syndrome of left wrist 7683706235 55997 G56.02 Ulnar nerv e entrapment at elbow 852198180 G56.22 Health Concerns Section Related Observation LastModified by Organization Detai ls LastModified Time None Recorded Concern Status LastModified by Organization Details LastModified Time None Recorded Advance Directives Directive None Recorded Payers Insurance Date Sequence Insurance Name Policy Number Policy Mijares Covered Member ID Mijares Member ID Guarantor Name 10/12/2023 1 [facility] Stephani Warren [id number] Stephani Warren Notes Date Note Type Note Provider Name and Address Organization Details Recorded Time 02/06/2022 text/html this is a 41-yea r-old female who presents today in follow-up for diarrhea. We saw the patient last we ordered stool studies which unfortunately the patient has never returned, and therefore there are no studies available to review. She reports that she continues with diarrhea to 5 times a day without associated rectal bleeding or black tarry bowel movements. No abdominal pain no weight loss no fevers or chills. The patient did have blood testing done after her last visit that showed a normal CBC and normal CRP. Eugenio Foy MD [address] [place] [address],[address], [place], [address], [place] - [facility] & [place] 02/06/2022 14:33:16 01/04/2023 text/html Pt is here for r t hand numbness and decreased strength of the rt hand. She reports no injury. She does not work.-She has not had an [id number] Francesco De León MD [address] [place] [address],[address], [place], [address], [place] - [facility] & [place] 01/09/2023 07:54:26 01/25/2023 text/html 42 y.o. female h ere for follow-up on her EMG results. The EMG revealed:EMG BUE 10.17.23 [facility]1. Moderate RIGHT carpal tunnel2. Mild LEFT carpal tunnel3. Mild BILATERAL cubital [id number] Francesco De León MD [address] [place] [address],[address], [place], [address], [facility] & [place] 01/26/2023 06:48:29 06/08/2023 text/html 2 week post op r ight carpal and cubital tunnel release, DOS: 05/24/23Patient states she still has pain about hand and elbowNumbness and tingling have resolvedSutures intactTaking Ibuprofen [id number] ANGELO LANZA DO [address] [place] [address] Drive,[address], [place], [address], [facility] & [place] 06/08/2023 09:30:05 10/09/2023 text/html Pt is here for numbness and tingling of the left hand and fingers with decreased strength. Onset 2 months ago. Gutierrez EMG on 01/16/2023- E4SF ANGELO LANZA DO [address] [place] [address] Drive,[address], [place], [address], [facility] & [place] 10/10/2023 12:48:41 OBGyn Episode No OBEpisode recorded.
--- OUTSIDE RECORDS SUMMARY | 2024-10-06 09:32 | XMS_ITS | Encounter Summary ---
Author Organization Healthcare Address [address] [place] [address] Care Team Providers Care Flour Broker Name Role Phone Unavailable Primary Care Provider Unavailabl e Encounter Details Date Type Department Care Team (Latest Contact Info) Description 09/02/2024 Travel Social History Tobacco Use Types Packs/Day [...] Info) Description 10/06/2024 10:40 AM EDT Consult [facility] General Surgery [address], [address] [place] [address] Dunia Mc, [employer] [address] [place] [address] documented as of this encounter Visit Diagnoses Not on filedocumented in this encounter Additional Health Concerns Assessment Noted Time A Body Mass Index follow-up plan has been documented for the patient 09/28/2022 4:49 PM EDT documented as of this encounter
--- OUTSIDE RECORDS SUMMARY | 2024-10-06 09:32 | XMS_ITS | Clinical Summary ---
Author Organization Healthcare Address [address] [id number] Care Team Providers Care Siebel Architect Name Role Phone Anderson Mckinnon MD Primary Care Provider [phone] Encounters Date Type Department Care Team Description 10/05/2024 Travel 09/08/2024 Telephone [facility] [address], [address] [place] [address] Dunia Mc APRN HCIsabel Clinical Concern/Question (Rs 09/08) 09/02/2024 Travel from Last 3 Months Social History Tobacco Use Types Packs/Day Years Used Date Smoking Tobacco: Never Assessed Comments Unknown Sex and Gender Information Value Date Recorded Sex Assigned at Not on file Legal Sex Female 1:54 PM EDT Gender Identity Not on file Sexual Orientation Not on file Last Filed Vital Signs Vital Sign Reading Time Taken Comments Blood Pressure 146/70 09/28/2022 8:19 AM EDT Pulse 67 09/28/2022 8:19 AM EDT Temperature - - Respiratory Rate - - Oxygen Saturation - - Inhaled Oxygen Concentration - - Weight 86.9 kg (191 lb 9.3 oz) 09/28/2022 8:19 A M EDT Height 162.6 cm (5' 4 ) 09/28/2022 8:19 AM EDT Body Mass Index 32.88 09/28/2022 8:19 AM EDT Plan of Treatment Upcoming Encounters Date Type Department Care Team (Late st Contact Info) Description 10/06/2024 10:40 AM EDT Consult [facility] General Surgery [address], [address] [place] [address] Dunia Mc APRN [address] [place] [id number] Health Maintenance Due Date Last Done Comments Dental Prophylaxis 1982 Dental X-Ray: Bitewings 1982 [facility]-Depression Screening 1982 [facility]-HIV Screening 1982 [facility]-Hepatitis C Screening 1982 [facility]-Infant/Child/Adol SDOH Screenings 1982 [facility]-Varicella Vaccines (1 of 2 - 13+ 2-dose series) 07/05/1995 HPV Vaccines (1 - 3-dose series) 1997 [facility]- SDOH Screenings 2000 [facility]-Adult SDOH Screenings 2000 [facility]-DTaP,Tdap,and Td Vaccine s (1 - Tdap) 2001 [facility]-Hepatitis B Vaccines (1 of 3 - 19+ 3-dose series) 2001 [facility]-Pap Smear 07/05/2003 [facility]-Cervical Cancer Screening 2012 [facility]-HPV/Cotest 2012 Dental Oral Exam 08/03/2022 02/02/2022 NSP-BQRSO-74 Vaccine ( - season) 2023 [facility]-Influenza Vaccine (#1) 12/01/202412/27, 01/09/2019, 12/21/2018 Dental X-Ray: Full Mouth 02/03/2025 02/02/2022 [facility]-Zoster Vaccines (1 of 2) 2032 [facility]-Obesity Intervention Completed 09/28/2022 [facility]-HIB Vaccines Aged Out No longer e ligible based on patient's age to complete this topic [facility]-Hepatitis A Vaccines Aged Out No longer eligible based on patient's age to complete this topic [facility]-IPV Vaccines Aged Out No longer e ligible based on patient's age to complete this topic [facility]-Pneumococcal Vaccine: Pediatrics (0 to 5 Years) and At-Risk Patients (6 to 49 Years) Aged Out No longer eligible b ased on patient's age to complete this topic [facility]-Rotavirus Vaccines Aged Out No lo nger eligible based on patient's age to complete this topic Procedures Procedure Name Priority Date/Time Associated Diagnosis Comments PANORAMIC RADIOGRAPHIC IMAGE Routine 02/02/2022 1:00 PM EDT Dental decay COMPREHENSIVE ORAL EVALUATION - NEW OR ESTABLISHED PATIENT Routine 02/02/2022 1:00 PM EDT Dental decay from Last 3 Months or Most Recently Relevant to Health Maintenance Insurance AETNA [facility] MEDICAID [place] MEDICAID DENTAL Care Teams Siebel Architect Relationship Specialty Start Date End Date Anderson Mckinnon MD [address] [place] [id number] PCP - General 10/05/24
--- OUTSIDE RECORDS SUMMARY | 2024-10-06 09:32 | XMS_ITS | Encounter Summary ---
Author Organization Healthcare Address [address] [place] [address] Care Team Providers Care Cloth Burler Name Role Phone Unavailable Primary Care Provider Unavailabl e Reason for Visit * Reason Onset Date Comments HCN Clinical Concern/Question 09/08/2024 Rs 09/08 Encounter Details Date Type Department Care Team (Late st Contact Info) Description 09/08/2024 Telephone [place] [facility] [address], [address] [place] [address] Dunia Mc, CLINICAL TRIALS MANAGER [address] [place] [address] HCN Clinical Concern/Question (Rs 09/08) Social History Tobacco Use Types Packs/Day Years Used Date Smoking Tobacco: Never Assessed Comments Unknown Sex and Gender Information Value Date Recorded Sex Assigned at Not on file Legal Sex Female 1:54 PM EDT Gender Identity Not on file Sexual Orientation Not on file documented as of this encounter Miscellaneous Notes * Telephone Encounter - Nay Dawson - 09/08/2024 9:12 AM EDT Spoke with patient and rescheduled appointment to 10/06 at 10:40AM. Will send appointment reminder inthe mail. * Telephone Encounter - Esperanza Diallo - 09/08/2024 8:11 AM EDT Patient Phone Message Reason for Call: Rs 09/08 Best contact number and optimal time of day to reach caller: Pt / [phone] Note: Please do not reply to this message. Follow-up communication and further actions as a result of this message need to be communicated with the patient directly, if the patient is not active onMyChart. If the patient is active on MyChart, they will receive notification of the communication/outcome via MyChart. documented in this encounter Plan of Treatment Upcoming Encounters Date Type Department Care Team (Late st Contact Info) Description 10/06/2024 10:[address] [facility] General Surgery [address], [address] [place] [address] Dunia Mc, CLINICAL TRIALS MANAGER [address] [place] [address] documented as of this encounter Visit Diagnoses Not on filedocumented in this encounter Additional Health Concerns Assessment Noted Time A Body Mass Index follow-up plan has been documented for the patient 09/28/2022 4:49 PM EDT documented as of this encounter
--- OUTSIDE RECORDS SUMMARY | 2024-10-06 09:32 | XMS_ITS | Clinical Summary ---
Author Organization [facility] Address [address] [place] [address] Phone Care Team Providers Care Msws Name Role Phone Unavailable Primary Care Provider Unavailabl e Social History Tobacco Use Types Packs/Day Years Used Date Smoking Tobacco: Never Assessed Comments Unknown Sex and Gender Information Value Date Recorded Sex Assigned at Not on file Legal Sex Female 1:23 PM EST Gender Identity Not on file Sexual Orientation Not on file Plan of Treatment Health Maintenance Due Date Last Done Comments Annual Wellness Exam 1985 DTaP/TDaP/Td (1 - Tdap) 2001 Hepatitis B Vaccine (1 of 3 - 19+ 3-dose series) 2001 Cervical Cancer Screening 07/05/2003 Pap Smear 07/05/2003 HPV/Pap Cotest 2012 COVID-19 Vaccine (2023-2 5 season) 2023 Influenza Vaccine (#1) 2024 3, 12/21/2018 Breast Cancer Screening 02/09/2025 02/09/2023 Meningococcal B Vaccine Aged Out No l onger eligible based on patient's age to complete this topic Pneumococcal Vaccine 0-49 Aged Out No longer eligible based on patient's age to complete this topic Procedures Procedure Name Priority Date/Time Associated Diagnosis Comments MM MAMMO DIGITAL SUSANA SCREEN BILAT Routine 02/09/2023 10:40 AM EST Encounter for screening mammogram for malignant neoplasm of breast from Last 3 Months or Most Recently Relevant to Health Maintenance Results * MM MAMMO DIGITAL SUSANA SCREEN BILAT (02/09/2023 10:40 AM EST) Anatomical Region Laterality Modality Breast Bilateral Mammography 02/13/2023 1:27 PM EST Impressions 02/13/2023 1:27 PM EST Negative ([id number]-7) ~ RECOMMENDATION: Routine screening mammogram in 1 year. ~ DISCLAIMER * Any patient with a palpable abnormality, unexplained by breast imaging, should be managed on clinical basis by the attending physician. * Breast imaging has a false negative rate of 15%. * The patient was notified by mail of the results of this examination. *The patient's information was entered into a reminder system with a target due date for the next mammogram, in accordance with the [employer] and the Society of Breast Imaging recommendations. Narrative 02/13/2023 1:27 PM EST Procedure:MM MAMMO DIGITAL SUSANA SCREEN BILAT ~ Reason for exam: screening, asymptomatic. Z12.31-Encounter for screening mammogram for malignant neoplasm of nowfci-AQL-15-CM ~ MM MAMMO DIGITAL SSUANA SCREEN BILAT Bilateral CC and MLO view(s) were taken. The breast tissue is heterogeneously dense. This may lower the sensitivity of mammography. Prior study comparison: Compared with prior studies the most recent being 02/03/2020 No mammographic evidence of malignancy. ~ Procedure Note Jasiel Rodriguez MD - 02/13/2023 Procedure:MM MAMMO DIGITAL SUSANA SCREEN BILAT ~ Reason for exam: screening, asymptomatic. Z12.31-Encounter for screening mammogram for malignant neoplasm of lfiwlr-FVT-43-CM ~ MM MAMMO DIGITAL SUSANA SCREEN BILAT Bilateral CC and MLO view(s) were taken. The breast tissue is heterogeneously dense. This may lower thesensitivity of mammography. Prior study comparison: Compared with prior studies the most recentbeing 02/03/2020 No mammographic evidence of malignancy. ~ IMPRESSION: Negative (IQP-Lusejreg-3) ~ RECOMMENDATION: Routine screening mammogram in 1 year. ~ DISCLAIMER * Any patient with a palpable abnormality, unexplained by breast imaging, should be managed on clinical basis by the attending physician. * Breast imaging has a false negative rate of 15%. * The patient was notified by mail of the results of this examination. *The patient's information was entered into a reminder system with atarget due date for the next mammogram, in accordance with the [employer] and the Society of Breast Imaging recommendations. us Alison G Leandro CORPORATE FITNESS PROGRAM COORDINATOR IMG MAMMOGRAPHY ORDERABLE S Final Result from Last 3 Months or Most Recently Relevant to Health Maintenance Insurance AETNA [facility] [id number]
== END 2024-10-01 23:59 | disposition home or self-care (01) ==
LOC: LAB.DROPOF 10-06 09:29
PROVIDERS: PCP Family Medicine; Visit Provider Family Medicine
DX: E11.9 Type 2 diabetes mellitus without complications (principal); Z76.89 Persons encountering health services in other specified circumstances; Z11.59 Encounter for screening for other viral diseases
CPT/HCPCS: 80053; 80061; 80074; 82043; 82570; 84443; 85025; 87340; 87389

== ENCOUNTER 2025-01-21 08:58 | Day surgery (SDC) | payer OTHER, SELFPAY ==
[2025-01-16 15:14] VITALS: BMI 35.4
--- NOTE | 2025-01-20 17:37 | EXP.HP ---
History of Present Illness *Admission Date: 01/21/25 *History of present illness: Mrs. Resendiz is a 44-year-old female who is here for diagnostic EGD. The patient reports dysphagia and globus sensation. The patient did come back to see me with the identical symptoms late last year and her EGD with me in February 2024 showed cricopharyngeal spasm and nonerosive GERD with moderate esophageal dysmotility. She also had bile reflux with linear reactive gastropathy. I did dilate the esophagus to 20 mm. She did not have a inlet patch. At that time she was having some belching and gassiness and painful swallowing. She also was having heartburn and reflux. I did recommend Iberogast twice daily as well as the fiber bowel regimen (MiraLAX plus Citrucel). The patient is not on either of these presently. She has had in the last month recurrence of the globus sensation and difficult swallowing with choking on food, water and medications. She feels as if things are stuck in her throat. She reports no nausea, vomiting. She does get some burning in her throat. The examination is deemed medically necessary for diagnostic EGD. The patient has been seen, interviewed and examined prior to the procedure by both myself and the anesthesia provider. [facility] Disclaimer: The information contained in this section may have been updated after the patient was seen, as this information can be updated by other users. Medical History History of depression H/O: HTN (hypertension) H/O gastroesophageal reflux (GERD) Appendicitis Surgical History Status post partial amputation of foot History of cholecystectomy History of appendectomy H/O arthroscopic knee surgery Family History Mother Cancer Father Heart attack Other Hypertension Social History Smoking Status: Former smoker tobacco type: cigarettes alcohol intake: never substance use type: denies use current occupational status: employed Travel in the last 8 weeks?: None caffeine: No Have you lived/traveled outside US in past 30 days?: No Contact w/someone who lives/traveled outside US past 30 days?: No Exposure to someone with infectious disease in past 14 days?: No Do you have a fever (greater than 100.4 F or 38 C)?: No Have you tested positive for COVID-19?: No Exposed to someone with COVID-19 in past 14 days?: No Do you have a sore throat?: No Do you have a cough?: No Do you have any weakness?: No Do you have any diarrhea?: No Are you experiencing any unusual bleeding?: No Do you have any muscle aches/pain?: No Do you have any abdominal pain?: No Are you experiencing loss of taste or smell?: No Review of Systems Review of Systems Review of systems (narrative): Negative *Cardiovascular Comments: Negative *Gastrointestinal Comments: Negative *Genitourinary Comments: Negative *Musculoskeletal Comments: Negative *Neurologic Comments: Negative Meds Home Medications and Allergies Home Medications ?Medication ?Instructions ?Recorded ?Confirmed ?Type blood sugar diagnostic (Revolve RoboticsTouch #10 ea 01/03/24 01/21/25 History Verio test strips) cholecalciferol (vitamin D3) 50 50 mcg PO DAILY 01/03/24 01/21/25 History mcg (2,000 unit) capsule dicyclomine 10 mg capsule 10 mg PO BID PRN . 01/03/24 01/21/25 History lancets 33 gauge (OneTouch Delica #100 ea 01/03/24 12/31/24 History Plus Lancet) lisinopril 2.5 mg tablet 2.5 mg PO DAILY 01/03/24 01/21/25 History omeprazole 20 mg capsule,delayed 20 mg PO DAILY 01/03/24 01/21/25 History release sertraline 100 mg tablet (Zoloft) 100 mg PO DAILY 01/03/24 01/21/25 History dapagliflozin propanediol 10 mg 10 mg PO DAILY 02/05/24 01/21/25 History tablet (Farxiga) blood-glucose sensor (Dexcom G7 #3 ea 10/01/24 01/21/25 Rx Sensor device) blood-glucose,grout machine tender,cont #1 ea 10/01/24 12/31/24 Rx (Dexcom G7 Milieu Technician) insulin aspart U-100 100 unit/mL 12 unit (0.12 mL) SQ TID #15 mL 10/01/24 01/21/25 Rx (3 mL) subcutaneous pen (Novolog FlexPen U-100 Insulin aspart) atorvastatin 20 mg tablet 20 mg PO DAILY #90 tabs 10/02/24 01/21/25 Rx ibuprofen 800 mg tablet 800 mg PO Q8H #90 tabs 12/31/24 01/21/25 Rx insulin glargine U-300 conc 300 80 unit (0.2667 mL) SQ DAILY #6 mL 12/31/24 01/21/25 Rx unit/mL (3 mL) subcutaneous pen (Toujeo Max U-300 SoloStar) semaglutide 0.25 mg or 0.5 mg (2 0.25 mg (0.368 mL) SQ WEEKLY #3 mL 12/31/24 01/21/25 Rx mg/3 mL) subcutaneous pen injector (Ozempic) New Prescriptions to Start Prescriptions: Allergies Allergy/AdvReac Type Severity Reaction Status Date / Time metformin Allergy Mild Rash Verified 01/21/25 09:41 sumatriptan (From Imitrex) Allergy Mild Rash Verified 01/21/25 09:41 Exam *Routine HEENT Exam Head: Present normocephalic Eye: Present EOMI and PERRL ENT: Present mucous membranes moist *Routine Neck Exam Neck: Present supple *Routine Respiratory Exam Respiratory: Present CTA bilaterally *Routine Cardiovascular Exam Cardiovascular: Present RRR *Routine Abdominal Exam Abdominal: Present soft and normoactive bowel sounds; Absent tenderness *Routine Rectal Exam Rectal:: deferred *Routine Genitalia Exam Genitalia:: deferred *Routine Extremities Exam Extremities: Absent cyanosis, clubbing or edema *Routine Skin Exam Skin: Present warm; Absent rash *Routine Neurological Exam Neurological: Present alert and oriented X3 Assessment and Plan *Assessment and plan (1) Dysphagia: Status: Acute Category: Medical Code(s): R13.10 - Dysphagia, unspecified (2) Globus sensation: Status: Acute Category: Medical Code(s): R09.A2 - Foreign body sensation, throat (3) GERD (gastroesophageal reflux disease): Status: Acute Category: Medical Code(s): K21.9 - Gastro-esophageal reflux disease without esophagitis (4) Heartburn: Status: Acute Category: Medical Code(s): R12 - Heartburn (5) Esophageal dysmotility: Status: Acute Category: Medical Code(s): K22.4 - Dyskinesia of esophagus Plan A/P: 1. Dysphagia and globus sensation is the preprocedural diagnosis. The patient will be anesthetized/sedated using MAC sedation. The patient has been seen and examined. Cardiac and lung assessment prior to the examination is stable. Proceed with planned diagnostic EGD.
--- NOTE | 2025-01-21 06:55 | P.PCN_ITS ---
[facility] Procedure Note Date: 01/21/25 Time: 10:50 Procedure Note:: Upper Endoscopy Procedure Report: Esophagogastroduodenoscopy with cold biopsies and TTS balloon dilation Endoscopost: Solis Crocker II, MD Referring Physician: Mark Mckinnon MD Date of Procedure: January 21, 2025 Equipment: Olympus GIF-1100 standard upper endoscope Sedation: MAC sedation Indications: Mrs. Resendiz is a 44-year-old female who is here for diagnostic EGD. The patient reports dysphagia and globus sensation. The patient did come back to see al with the identical symptoms late last year and her EGD with al in February 2024 showed cricopharyngeal spasm and nonerosive GERD with moderate esophageal dysmotility. She also had bile reflux with linear reactive gastropathy. I did dilate the esophagus to 20 mm. She did not have a inlet patch. At that time she was having some belching and gassiness and painful swallowing. She also was having heartburn and reflux. I did recommend Iberogast twice daily as well as the fiber bowel regimen (MiraLAX plus Citrucel). The patient is not on either of these presently. She has had in the last month recurrence of the globus sensation and difficult swallowing with choking on food, water and medications. She feels as if things are stuck in her throat. She reports no nausea, vomiting. She does get some burning in her throat. The examination is deemed medically necessary for diagnostic EGD. Procedure: Prior to the procedure, a history and physical exam was performed, and patient's medications and allergies were reviewed. The risks, benefits and alternatives of the sedation and procedure were discussed with the patient. All questions were answered and informed consent was obtained. The patient was brought to the procedure room. Patient identification and proposed procedure were verified by the physician and the nurse. The patient was placed in a left lateral decubitus position and the scope was passed under direct vision. Throughout the procedure, the patient's blood pressure, pulse, and oxygen saturations were monitored continuously. The upper GI endoscopy was accomplished without difficulty. The patient tolerated the procedure well. Findings: The scope was passed directly into the upper esophagus and advanced to the third portion of the duodenum. The post bulbar duodenum, ampulla and duodenal bulb were normal with normal mucosa and conniventes. 2 cold biopsies were taken from the second portion of the duodenum for the disaccharidase assay. The scope was withdrawn through a normal duodenal bulb and pylorus into the stomach. There was bile reflux with linear reactive gastropathy of the antrum. The body and fundus of the stomach were normal. Upon retroflexion there was a small 1 to 2 cm hiatal hernia. The scope was then withdrawn into the esophagus. There is no evidence of reflux esophagitis or Mays's. There were tertiary contractions and evidence of mild esophageal dysmotility. The entire esophagus was dilated to 60 Welsh/20 mm with a TTS hydrostatic balloon. There were no rings, strictures, webs, corrugation or inlet patch. The remainder of the esophageal mucosa was normal. Impression: 1. Nonerosive GERD with mild esophageal dysmotility and small 1 to 2 cm hiatal hernia 2. Linear reactive gastropathy of antrum Plan: The patient's symptoms of globus and dysphagia are related to the esophageal dysmotility. The patient does need to remain compliant with the regimen that I had outlined previously including Iberogast. I will check the disaccharidase assay.
[2025-01-21 09:46] VITALS: BP 148/91; PULSE 73; RESP 18; TEMP 36.5; O2SAT 99
[2025-01-21 09:48] LABS: Urine Pregnancy, HCG Qual. Negative (Negative)
[2025-01-21] MEDS: LACTATED RINGERS 1000ML 1,000 ML 50 ML IV (09:52)
[2025-01-21 09:57] LABS: POC Glucose,Bedside 233 gm/dL (70-110)
--- NOTE | 2025-01-21 09:59 | EXP.ANES.CKL ---
[facility] Disclaimer: The information contained in this section may have been updated after the patient was seen, as this information can be updated by other users. Medical History History of depression H/O: HTN (hypertension) H/O gastroesophageal reflux (GERD) Appendicitis Surgical History Status post partial amputation of foot History of cholecystectomy History of appendectomy H/O arthroscopic knee surgery Family History Mother Cancer Father Heart attack Other Hypertension Social History Smoking Status: Former smoker tobacco type: cigarettes alcohol intake: never substance use type: denies use current occupational status: employed Travel in the last 8 weeks?: None caffeine: No Have you lived/traveled outside US in past 30 days?: No Contact w/someone who lives/traveled outside US past 30 days?: No Exposure to someone with infectious disease in past 14 days?: No Do you have a fever (greater than 100.4 F or 38 C)?: No Have you tested positive for COVID-19?: No Exposed to someone with COVID-19 in past 14 days?: No Do you have a sore throat?: No Do you have a cough?: No Do you have any weakness?: No Do you have any diarrhea?: No Are you experiencing any unusual bleeding?: No Do you have any muscle aches/pain?: No Do you have any abdominal pain?: No Are you experiencing loss of taste or smell?: No [facility] Anesthesia Checklist Patient Identification Patient Identification: Arm Band and Verbal (Name & ) Structural Data Admitted From: Home Planned Operative Procedure/s: EGD Consent for Planned Operative Procedure(s) Verified: Yes Verified Documents: Surgical Consent and History and Physical NPO Status Verified Time NPO: 00:00 Additional verifications Anesthesia Reactions: No Previous Colonoscopy: Yes Airway Assessment Mallampati Score:: Class II Dentition: Edentulous Neurological Assessment Level of Consciousness: Awake, Alert and Appropriate Hx Seizures: No Numbness or tingling in extremities: No Anesthesia Plan Anesthesia Risk discussed: Yes Anesthesia Plan: Verified ASA Class: II Anesthesia Type: MAC
[2025-01-21 10:50] VITALS: BP 110/71; PULSE 82; RESP 14; TEMP 36.4; O2SAT 96
[2025-01-21 11:00] VITALS: BP 129/77; PULSE 75; RESP 16; O2SAT 97
[2025-01-21 11:10] VITALS: BP 130/79; PULSE 72; RESP 16; O2SAT 97
[2025-01-21 11:20] VITALS: BP 125/73; PULSE 72; RESP 16; TEMP 36.4; O2SAT 98
[2025-01-27 14:30] LABS: Interpretation Notes (.); Lactase 5.93 (>/= 14.0); Maltase 128.55 (>/= 110.0); Palatinase 9.23 (>/= 8.5); Reference Notes (.); Sucrase 32.96 (>/= 25.0)
== END 2025-01-21 12:08 | disposition home or self-care (01) ==
PROVIDERS: PCP Family Medicine; Visit Provider Internal Medicine Gastroenterology
PROC: 0DJ08ZZ Inspection of Upper Intestinal Tract, Via Natural or Artificial Opening Endoscopic (ICD-10-PCS; CPT 43239; principal; 2025-01-21 11:00)
DX: K21.9 Gastro-esophageal reflux disease without esophagitis (principal); K44.9 Diaphragmatic hernia without obstruction or gangrene; K31.89 Other diseases of stomach and duodenum; K22.4 Dyskinesia of esophagus; I10 Essential (primary) hypertension; Z87.891 Personal history of nicotine dependence; Z90.49 Acquired absence of other specified parts of digestive tract; Z88.6 Allergy status to analgesic agent; Z88.8 Allergy status to other drugs, medicaments and biological substances
CPT/HCPCS: 43239; 43249; 81025; 82657; 82962; C1726; J2003; J2704; J7120